=== PATIENT | male | born 1945 | race Caucasian/White ===

== ENCOUNTER 2022-04-25 12:53 | Inpatient (IN) | payer MEDICARE, OTHER ==
[2022-04-25 13:29] LABS: #Eosinphils 0.1 thou/uL (0.0-0.7); #Monocytes 0.6 thou/uL (0.11-0.59); #Neutrophils 7.6 thou/uL (1.40-6.50); %Basophils 0.1 % (0.0-1.0); %Eosinophils 0.6 % (0.0-10.0); %Lymphocytes 10.6 % (21.0-51.0); %Monocytes 6.9 % (0.0-10.0); %Neutrophils 81.8 % (42.0-75.0); Hemoglobin 12.8 g/dL (14.0-18.0); Mean Corpuscular HGB CONC 31.9 g/dL (32.0-36.0); Mean Corpuscular Hemoglobin 31.9 pg (27.0-31.0); Mean Corpuscular Volume 99.8 fl (78.0-98.0); Mean Platelet Volume 8.1 fL (7.4-10.4); Platelet Count 277 10x3/uL (130-400); RBC Distribution Width 13.9 % (11.5-14.5); Red Blood Cell (RBC) Count 4.02 mill/uL (4.70-6.10); White Blood Cell (WBC) Count 9.3 10x3/uL (4.8-10.8)
[2022-04-25 13:48] LABS: INR-International Normal Ratio 1.3; Prothrombin Time 16.4 sec (12.0-14.7)
[2022-04-25 13:51] LABS: ALT (SGPT) 140 U/L (8-55); AST (SGOT) 103 U/L (5-34); Albumin 2.4 g/dL (3.4-4.8); Alkaline Phosphatase 107 U/L (40-110); Anion Gap 17 mmol/L (10-20); BUN (Urea Nitrogen) 14 mg/dL (8.4-25.7); Bilirubin, Total 1.5 mg/dL (0.2-1.2); CK (CPK) 66 U/L (30-200); Calc. Creatinine Clearance 0 mL/min (70-130); Calcium 8.1 mg/dL (7.8-10.44); Carbon Dioxide 18 mmol/L (23-31); Chloride 114 mmol/L (98-107); Estimated GFR 91; Globulin 2.8 g/dL (2.4-3.5); Glucose 131 mg/dL (83-110); Potassium 4.2 mmol/L (3.5-5.1); Protein, Total 5.2 g/dL (5.8-8.1); Sodium 145 mmol/L (136-145)
[2022-04-25 14:04] LABS: Bilirubin Negative (Negative); Blood, Urine Negative (Negative); Clarity Clear (Clear); Glucose, Urine (Dipstick) Greater than 1000 mg/dL (Negative); Ketone, Urine 40 mg/dL (Negative); Leukocyte Negative Leu/uL (Negative); Nitrite Negative (Negative); Protein, Urine (Dipstick) Negative (Neg-Trace); Specific Gravity, Urine 1.018 (1.002-1.036); Urobilinogen Normal mg/dL (Less than 2); pH, Urine 5.5 (5.0-9.0)
[2022-04-25 14:29] LABS: SARS-CoV-2 NAA Rapid Test DETECTED (NotDetected)
[2022-04-25] MEDS ORDERED: Sodium Chloride 0.9% 1,000 ML IV SCH (14:30)
[2022-04-25] MEDS ORDERED: Ondansetron PF 4 MG/2 ML Vial IVP PRN (14:31)
[2022-04-25 15:22] LABS: Actual Bicarbonate (HCO3v) 20 mEq/L (22-28); Base Excess -4.6 mEq/L (-2.0 to +3.0); Chloride (VBG) 113 mmol/L (98-106); Hemoglobin (Hb) 12.8 g/dL (12.6-17.4); Potassium (VBG) 3.81 mmol/L (3.70-5.30); Sodium 142.9 mmol/L (133-146); pH (venous) 7.37 (7.32-7.43)
[2022-04-25] MEDS ORDERED: Dextrose 5% in Water 1,000 ML IV PRN (17:06)
[2022-04-25] MEDS ORDERED: Dextrose 50% Abboject 50 ML SYRINGE SLOW IVP PRN (17:06)
[2022-04-25] MEDS ORDERED: diphenhydrAMINE 30 GM TUBE TOP PRN (20:34)
[2022-04-26 06:32] LABS: #Lymphocytes 0.8 thou/uL (1.20-3.40); #Monocytes 0.4 thou/uL (0.11-0.59); #Neutrophils 9.5 thou/uL (1.40-6.50); %Eosinophils 0.3 % (0.0-10.0); %Monocytes 3.8 % (0.0-10.0); %Neutrophils 88.8 % (42.0-75.0); Hemoglobin 11.6 g/dL (14.0-18.0); Mean Corpuscular HGB CONC 32.4 g/dL (32.0-36.0); Mean Corpuscular Hemoglobin 32.5 pg (27.0-31.0); Mean Platelet Volume 7.9 fL (7.4-10.4); Platelet Count 290 10x3/uL (130-400); Red Blood Cell (RBC) Count 3.58 mill/uL (4.70-6.10); White Blood Cell (WBC) Count 10.7 10x3/uL (4.8-10.8)
[2022-04-26 07:05] LABS: Anion Gap 24 mmol/L (10-20); BUN (Urea Nitrogen) 21 mg/dL (8.4-25.7); Calc. Creatinine Clearance 60 mL/min (70-130); Calcium 7.8 mg/dL (7.8-10.44); Chloride 116 mmol/L (98-107); Estimated GFR 74; Glucose 146 mg/dL (83-110); Potassium 4.4 mmol/L (3.5-5.1); Sodium 145 mmol/L (136-145)
[2022-04-26 07:18] LABS: Carbon Dioxide 9 mmol/L (23-31)
[2022-04-26] MEDS: Sodium Bicarbonate 75 MEQ in Sodium Chloride 0.45% 1,000 ML IV SCH ×2 (08:53→22:44)
[2022-04-26] MEDS ORDERED: Ketamine 50 MG/ML (10ML VIAL) ONE (19:14)
[2022-04-26] MEDS ORDERED: Phenylephrine 10 MG/ML VIAL ONE (19:15)
[2022-04-26] MEDS ORDERED: Albumin 5% 250 ML ONE (20:29)
[2022-04-27] MEDS ORDERED: Lorazepam 2 MG/ML VIAL SLOW IVP SCH (02:00)
[2022-04-27] MEDS: DRY MOUTH SPRAY PO SCH (02:46)
[2022-04-27 07:15] LABS: #Lymphocytes 1.2 thou/uL (1.20-3.40); #Neutrophils 9.9 thou/uL (1.40-6.50); %Basophils 0.2 % (0.0-1.0); %Eosinophils 0.2 % (0.0-10.0); %Monocytes 8.1 % (0.0-10.0); %Neutrophils 81.4 % (42.0-75.0); Hemoglobin 11.5 g/dL (14.0-18.0); Mean Corpuscular HGB CONC 31.2 g/dL (32.0-36.0); Mean Corpuscular Hemoglobin 32.3 pg (27.0-31.0); Mean Platelet Volume 7.8 fL (7.4-10.4); Platelet Count 310 10x3/uL (130-400); RBC Distribution Width 14.7 % (11.5-14.5); Red Blood Cell (RBC) Count 3.57 mill/uL (4.70-6.10); White Blood Cell (WBC) Count 12.1 10x3/uL (4.8-10.8)
[2022-04-27 07:44] LABS: Anion Gap 29 mmol/L (10-20); BUN (Urea Nitrogen) 31 mg/dL (8.4-25.7); Calc. Creatinine Clearance 41 mL/min (70-130); Calcium 7.7 mg/dL (7.8-10.44); Chloride 117 mmol/L (98-107); Estimated GFR 46; Glucose 195 mg/dL (83-110); Potassium 4.1 mmol/L (3.5-5.1)
[2022-04-27 08:09] LABS: Carbon Dioxide 9 mmol/L (23-31); Sodium 151 mmol/L (136-145)
[2022-04-27] MEDS ORDERED: Sodium Bicarbonate 75 MEQ in Dextrose 5% in Water 1,000 ML IV SCH (09:00)
[2022-04-27] MEDS ORDERED: Sodium Bicarbonate Tab 325 MG TAB PER TUBE SCH (09:00)
[2022-04-27] MEDS: Sodium Bicarbonate 75 MEQ in Dextrose 5% in Water 1,000 ML IV SCH ×3 (09:33→18:42)
[2022-04-27 12:42] LABS: Anion Gap 27 mmol/L (10-20); BUN (Urea Nitrogen) 33 mg/dL (8.4-25.7); Calc. Creatinine Clearance 39 mL/min (70-130); Calcium 7.7 mg/dL (7.8-10.44); Carbon Dioxide 12 mmol/L (23-31); Chloride 115 mmol/L (98-107); Estimated GFR 44; Glucose 265 mg/dL (83-110); Potassium 3.9 mmol/L (3.5-5.1); Sodium 150 mmol/L (136-145)
[2022-04-27] MEDS ORDERED: Albumin 25% 25 GM/100 ML BOT IVPB SCH (15:30)
[2022-04-27] MEDS ORDERED: Dextrose 5 %-0.45 % NaCl 1,000 ML IV PRN (16:38)
[2022-04-27] MEDS ORDERED: Sodium Chloride 0.9% 1,000 ML IV PRN ×4 (16:38)
[2022-04-27] MEDS ORDERED: Electrolyte Replacement Protocol 1 EACH IVPB ONE (16:38)
[2022-04-27] MEDS ORDERED: NS 0.9% w/ 20 MEQ KCL 1,000 ML IV PRN ×2 (16:38)
[2022-04-27 16:43] LABS: Base Excess (BEa) -9.3 mEq/L (-2.0 to +3.0); Calcium, Ionized (arterial) 1.14 mmol/L (1.12-1.30); Carboxyhemoglobin (COHb) 0.3 gm% (0.0-3.0); Hemoglobin (Hb) 11.4 g/dL (14.0-18.0); pH, Arterial 7.39 (7.35-7.45)
[2022-04-27 16:49] LABS: CO2 Tension 23.8 mmHg (35.0-45.0); Puncture Site RRA
[2022-04-27] MEDS ORDERED: Electrolyte Replacement Protocol FS PRN (17:15)
[2022-04-27 17:24] LABS: Bacteria/HPF 1+ HPF (None Seen); Bilirubin Negative (Negative); Blood, Urine Negative (Negative); CAUTI Indications for Culture Alt mental st,lethar; Clarity Clear (Clear); Glucose, Urine (Dipstick) Greater than 1000 mg/dL (Negative); Ketone, Urine 60 mg/dL (Negative); Leukocyte 25 Leu/uL (Negative); Nitrite Negative (Negative); Protein, Urine (Dipstick) Negative (Neg-Trace); RBC/HPF 0-3 HPF (0-3); Specific Gravity, Urine 1.022 (1.002-1.036); Squamous Epithelial None Seen HPF (0-3); Urobilinogen Normal mg/dL (Less than 2); WBC/HPF 0-3 HPF (0-3)
[2022-04-27 17:26] LABS: Urine Culture Reflex No No
[2022-04-27 17:30] LABS: Anion Gap 25 mmol/L (10-20); BUN (Urea Nitrogen) 32 mg/dL (8.4-25.7); Calc. Creatinine Clearance 38 mL/min (70-130); Calcium 7.9 mg/dL (7.8-10.44); Carbon Dioxide 13 mmol/L (23-31); Chloride 114 mmol/L (98-107); Estimated GFR 43; Glucose 286 mg/dL (83-110); Potassium 3.7 mmol/L (3.5-5.1); Sodium 148 mmol/L (136-145)
[2022-04-27 17:42] LABS: Creatinine, Urine 28.57 mg/dL (63-166); Protein, Urine Random Quant Less than 10 mg/dL (1-14); Sodium, Urine Less than 20 mmol/L (Not Available)
[2022-04-27] MEDS: D5 1/2 NS w/20 mEq KCL 1,000 ML IV PRN (20:59)
[2022-04-27] MEDS: HUMULIN R 100 UNITS in Sodium Chloride 0.9% 100 ML IVPB SCH (21:00)
[2022-04-27 22:28] LABS: Anion Gap 20 mmol/L (10-20); BUN (Urea Nitrogen) 29 mg/dL (8.4-25.7); Calc. Creatinine Clearance 38 mL/min (70-130); Calcium 7.7 mg/dL (7.8-10.44); Carbon Dioxide 19 mmol/L (23-31); Chloride 114 mmol/L (98-107); Estimated GFR 43; Glucose 321 mg/dL (83-110); Potassium 3.1 mmol/L (3.5-5.1); Sodium 150 mmol/L (136-145)
[2022-04-28 01:37] LABS: Anion Gap 16 mmol/L (10-20); BUN (Urea Nitrogen) 27 mg/dL (8.4-25.7); Calc. Creatinine Clearance 37 mL/min (70-130); Calcium 7.9 mg/dL (7.8-10.44); Carbon Dioxide 22 mmol/L (23-31); Chloride 114 mmol/L (98-107); Estimated GFR 41; Glucose 303 mg/dL (83-110); Potassium 3.2 mmol/L (3.5-5.1); Sodium 149 mmol/L (136-145)
[2022-04-28] MEDS: Sodium Bicarbonate 75 MEQ in Dextrose 5% in Water 1,000 ML IV SCH ×2 (02:20→07:53)
[2022-04-28] MEDS: DRY MOUTH SPRAY PO SCH (02:21)
[2022-04-28] MEDS: Potassium Chloride 20 MEQ in Premix Bag 1 BAG IVPB SCH ×4 (02:26→12:48)
[2022-04-28 04:19] LABS: #Eosinphils 0.1 thou/uL (0.0-0.7); #Monocytes 1.1 thou/uL (0.11-0.59); #Neutrophils 11.5 thou/uL (1.40-6.50); %Basophils 0.2 % (0.0-1.0); %Eosinophils 0.4 % (0.0-10.0); %Lymphocytes 7.4 % (21.0-51.0); %Monocytes 7.8 % (0.0-10.0); %Neutrophils 84.2 % (42.0-75.0); Hemoglobin 11.9 g/dL (14.0-18.0); Mean Corpuscular HGB CONC 32.3 g/dL (32.0-36.0); Mean Corpuscular Hemoglobin 31.9 pg (27.0-31.0); Mean Corpuscular Volume 98.9 fl (78.0-98.0); Mean Platelet Volume 7.7 fL (7.4-10.4); Platelet Count 282 10x3/uL (130-400); RBC Distribution Width 14.5 % (11.5-14.5); Red Blood Cell (RBC) Count 3.73 mill/uL (4.70-6.10); White Blood Cell (WBC) Count 13.7 10x3/uL (4.8-10.8)
[2022-04-28 04:55] LABS: Anion Gap 13 mmol/L (10-20); BUN (Urea Nitrogen) 24 mg/dL (8.4-25.7); Calc. Creatinine Clearance 40 mL/min (70-130); Calcium 7.7 mg/dL (7.8-10.44); Carbon Dioxide 24 mmol/L (23-31); Chloride 114 mmol/L (98-107); Estimated GFR 46; Glucose 278 mg/dL (83-110); Sodium 148 mmol/L (136-145)
[2022-04-28] MEDS ORDERED: Potassium Chloride 20 MEQ in Premix Bag 1 BAG IVPB SCH (06:00)
[2022-04-28 09:38] LABS: Phosphorus 1.5 mg/dL (2.3-4.7)
[2022-04-28] MEDS: D5 1/2 NS w/20 mEq KCL 1,000 ML IV PRN (09:39)
[2022-04-28] MEDS: HUMULIN R 100 UNITS in Sodium Chloride 0.9% 100 ML IVPB SCH (09:39)
[2022-04-28] MEDS ORDERED: Potassium Phosphate 30 MMOL in Sodium Chloride 0.9% 250 ML 250 ML IVPB SCH (11:15)
[2022-04-28] MEDS ORDERED: Electrolyte Replacement Protocol 1 EACH FS SCH (11:15)
[2022-04-28] MEDS: D5 1/2 NS w/20 mEq KCL 1,000 ML IV SCH ×2 (12:48→17:25)
[2022-04-28 12:49] LABS: Magnesium 1.9 mg/dL (1.6-2.6)
[2022-04-28] MEDS ORDERED: Calcium Carbonate 500 MG ChewTAB PO PRN (15:51)
[2022-04-28] MEDS ORDERED: Amiodarone 200 MG TAB PER TUBE SCH (15:52)
[2022-04-28] MEDS ORDERED: Amlodipine 5 MG TAB PO SCH (15:52)
[2022-04-28 15:54] LABS: Anion Gap 14 mmol/L (10-20); BUN (Urea Nitrogen) 16 mg/dL (8.4-25.7); Calc. Creatinine Clearance 54 mL/min (70-130); Calcium 7.7 mg/dL (7.8-10.44); Carbon Dioxide 21 mmol/L (23-31); Chloride 117 mmol/L (98-107); Estimated GFR 66; Glucose 238 mg/dL (83-110); Potassium 4.4 mmol/L (3.5-5.1); Sodium 148 mmol/L (136-145)
[2022-04-28] MEDS ORDERED: D5 1/2 NS w/20 mEq KCL 1,000 ML IV SCH (17:18)
[2022-04-28] MEDS: 1/2 NS w/KCL 20 mEq 1,000 ML IV SCH (17:46)
[2022-04-28] MEDS: Carvedilol 6.25 MG TAB PO SCH (21:34)
[2022-04-28] MEDS: Insulin Glargine 30 UNITS/0.3 ML VIAL SC SCH (21:34)
[2022-04-28] MEDS: Atorvastatin Calcium 20 MG TAB PO SCH (21:34)
[2022-04-28] MEDS: Heparin 5,000 UNITS/ML VIAL SC SCH (21:35)
[2022-04-28] MEDS: Timolol 0.5% Ophth Soln 5 ml Bottle R EYE SCH (22:26)
[2022-04-28] MEDS: Latanoprost 0.005% Ophth Soln 2.5 ml Bottle EA EYE SCH (22:26)
[2022-04-28 23:20] LABS: Anion Gap 13 mmol/L (10-20); BUN (Urea Nitrogen) 14 mg/dL (8.4-25.7); Calc. Creatinine Clearance 62 mL/min (70-130); Calcium 7.4 mg/dL (7.8-10.44); Carbon Dioxide 22 mmol/L (23-31); Chloride 118 mmol/L (98-107); Estimated GFR 77; Glucose 271 mg/dL (83-110); Potassium 6.1 mmol/L (3.5-5.1); Sodium 147 mmol/L (136-145)
[2022-04-29] MEDS: HumaLOG 300 UNITS/3 ML VIAL SC PRN ×2 (01:17→06:12)
[2022-04-29 01:42] LABS: Anion Gap 11 mmol/L (10-20); BUN (Urea Nitrogen) 16 mg/dL (8.4-25.7); Calc. Creatinine Clearance 63 mL/min (70-130); Calcium 7.4 mg/dL (7.8-10.44); Carbon Dioxide 24 mmol/L (23-31); Chloride 117 mmol/L (98-107); Estimated GFR 79; Glucose 268 mg/dL (83-110); Potassium 4.4 mmol/L (3.5-5.1); Sodium 148 mmol/L (136-145)
[2022-04-29 06:14] LABS: #Lymphocytes 0.8 thou/uL (1.20-3.40); #Monocytes 0.7 thou/uL (0.11-0.59); #Neutrophils 9.1 thou/uL (1.40-6.50); %Basophils 0.1 % (0.0-1.0); %Eosinophils 0.4 % (0.0-10.0); %Lymphocytes 7.8 % (21.0-51.0); %Monocytes 6.6 % (0.0-10.0); %Neutrophils 85.1 % (42.0-75.0); Hemoglobin 13.2 g/dL (14.0-18.0); Mean Corpuscular HGB CONC 32.1 g/dL (32.0-36.0); Mean Corpuscular Hemoglobin 32.1 pg (27.0-31.0); Mean Corpuscular Volume 99.9 fl (78.0-98.0); Mean Platelet Volume 8.1 fL (7.4-10.4); Platelet Count 251 10x3/uL (130-400); RBC Distribution Width 14.8 % (11.5-14.5); White Blood Cell (WBC) Count 10.7 10x3/uL (4.8-10.8)
[2022-04-29 06:35] LABS: Phosphorus 1.8 mg/dL (2.3-4.7)
[2022-04-29 06:37] LABS: Anion Gap 9 mmol/L (10-20); BUN (Urea Nitrogen) 16 mg/dL (8.4-25.7); Calc. Creatinine Clearance 64 mL/min (70-130); Calcium 7.9 mg/dL (7.8-10.44); Carbon Dioxide 27 mmol/L (23-31); Chloride 117 mmol/L (98-107); Estimated GFR 80; Glucose 246 mg/dL (83-110); Magnesium 1.8 mg/dL (1.6-2.6); Potassium 3.8 mmol/L (3.5-5.1); Sodium 149 mmol/L (136-145)
[2022-04-29] MEDS ORDERED: Potassium Phosphate 15 MMOL in Sodium Chloride 0.9% 100 ML IVPB SCH (08:00)
[2022-04-29] MEDS ORDERED: Magnesium 2 GM/50 ML(in water) 2 GM in Premix Bag 1 BAG IVPB SCH (08:00)
[2022-04-29] MEDS: 1/2 NS w/KCL 20 mEq 1,000 ML IV SCH (09:06)
[2022-04-29] MEDS: Tamsulosin HCl 0.4 MG CAP PO SCH (09:10)
[2022-04-29] MEDS: Carvedilol 6.25 MG TAB PO SCH ×2 (09:10→20:37)
[2022-04-29] MEDS: Heparin 5,000 UNITS/ML VIAL SC SCH ×2 (09:10→20:37)
[2022-04-29] MEDS: Amlodipine 5 MG TAB PO SCH (09:11)
[2022-04-29] MEDS: Amiodarone 200 MG TAB PER TUBE SCH (09:11)
[2022-04-29] MEDS: Insulin Glargine 30 UNITS/0.3 ML VIAL SC SCH ×2 (09:11→20:37)
[2022-04-29] MEDS: Polyethylene Glycol 3350 17 GM Packet PO SCH (09:12)
[2022-04-29] MEDS: Timolol 0.5% Ophth Soln 5 ml Bottle R EYE SCH ×2 (09:12→20:37)
[2022-04-29] MEDS: Ferrous Sulfate 325 MG TAB PO SCH (09:12)
[2022-04-29] MEDS: Bisacodyl 10 MG SUPP PR SCH (09:12)
[2022-04-29] MEDS: Fish Oil 1,000 MG CAP PO SCH (09:12)
[2022-04-29] MEDS: Atorvastatin Calcium 20 MG TAB PO SCH (20:37)
[2022-04-29] MEDS: Latanoprost 0.005% Ophth Soln 2.5 ml Bottle EA EYE SCH (20:38)
[2022-04-30 04:09] LABS: #Monocytes 0.6 thou/uL (0.11-0.59); #Neutrophils 8.5 thou/uL (1.40-6.50); %Basophils 0.1 % (0.0-1.0); %Eosinophils 0.3 % (0.0-10.0); %Lymphocytes 9.9 % (21.0-51.0); %Monocytes 5.8 % (0.0-10.0); Hemoglobin 13.1 g/dL (14.0-18.0); Mean Corpuscular HGB CONC 31.5 g/dL (32.0-36.0); Mean Corpuscular Hemoglobin 31.6 pg (27.0-31.0); Mean Platelet Volume 8.2 fL (7.4-10.4); Platelet Count 201 10x3/uL (130-400); RBC Distribution Width 14.8 % (11.5-14.5); Red Blood Cell (RBC) Count 4.15 mill/uL (4.70-6.10); White Blood Cell (WBC) Count 10.1 10x3/uL (4.8-10.8)
[2022-04-30 04:28] LABS: Phosphorus 2.1 mg/dL (2.3-4.7)
[2022-04-30 04:32] LABS: Anion Gap 11 mmol/L (10-20); BUN (Urea Nitrogen) 14 mg/dL (8.4-25.7); Calc. Creatinine Clearance 80 mL/min (70-130); Carbon Dioxide 28 mmol/L (23-31); Chloride 115 mmol/L (98-107); Estimated GFR 92; Glucose 176 mg/dL (83-110); Magnesium 2.1 mg/dL (1.6-2.6); Potassium 3.7 mmol/L (3.5-5.1); Sodium 150 mmol/L (136-145)
[2022-04-30] MEDS: Ferrous Sulfate 325 MG TAB PO SCH (09:27)
[2022-04-30] MEDS: Fish Oil 1,000 MG CAP PO SCH (09:27)
[2022-04-30] MEDS: Bisacodyl 10 MG SUPP PR SCH (09:27)
[2022-04-30] MEDS: Amiodarone 200 MG TAB PER TUBE SCH (09:28)
[2022-04-30] MEDS: Carvedilol 6.25 MG TAB PO SCH ×2 (09:28→21:54)
[2022-04-30] MEDS: Amlodipine 5 MG TAB PO SCH (09:28)
[2022-04-30] MEDS: Polyethylene Glycol 3350 17 GM Packet PO SCH (09:28)
[2022-04-30] MEDS: Tamsulosin HCl 0.4 MG CAP PO SCH (09:28)
[2022-04-30] MEDS: Insulin Glargine 30 UNITS/0.3 ML VIAL SC SCH ×2 (09:28→21:55)
[2022-04-30] MEDS: Heparin 5,000 UNITS/ML VIAL SC SCH ×2 (09:28→21:53)
[2022-04-30] MEDS: Timolol 0.5% Ophth Soln 5 ml Bottle R EYE SCH ×2 (09:29→22:00)
[2022-04-30] MEDS: Atorvastatin Calcium 20 MG TAB PO SCH (21:53)
[2022-04-30] MEDS: Latanoprost 0.005% Ophth Soln 2.5 ml Bottle EA EYE SCH (22:01)
[2022-05-01 05:00] LABS: Albumin 2.2 g/dL (3.4-4.8); Phosphorus 2.5 mg/dL (2.3-4.7)
[2022-05-01 05:02] LABS: Anion Gap 11 mmol/L (10-20); BUN (Urea Nitrogen) 15 mg/dL (8.4-25.7); Calc. Creatinine Clearance 92 mL/min (70-130); Calcium 8.1 mg/dL (7.8-10.44); Carbon Dioxide 25 mmol/L (23-31); Chloride 110 mmol/L (98-107); Estimated GFR 95; Glucose 96 mg/dL (83-110); Magnesium 1.9 mg/dL (1.6-2.6); Potassium 3.4 mmol/L (3.5-5.1); Sodium 143 mmol/L (136-145)
[2022-05-01] MEDS ORDERED: Potassium Bicarbonate/Cit Ac 20 MEQ TAB PER TUBE SCH (07:30)
[2022-05-01] MEDS ORDERED: Magnesium 2 GM/50 ML(in water) 2 GM in Premix Bag 1 BAG IVPB SCH (08:00)
[2022-05-01] MEDS: Amlodipine 5 MG TAB PO SCH (09:36)
[2022-05-01] MEDS: Amiodarone 200 MG TAB PER TUBE SCH (09:36)
[2022-05-01] MEDS: Bisacodyl 10 MG SUPP PR SCH (09:36)
[2022-05-01] MEDS: Ferrous Sulfate 325 MG TAB PO SCH (09:36)
[2022-05-01] MEDS: Fish Oil 1,000 MG CAP PO SCH (09:36)
[2022-05-01] MEDS: Carvedilol 6.25 MG TAB PO SCH ×2 (09:36→21:03)
[2022-05-01] MEDS: Tamsulosin HCl 0.4 MG CAP PO SCH (09:36)
[2022-05-01] MEDS: Insulin Glargine 30 UNITS/0.3 ML VIAL SC SCH ×2 (09:37→21:22)
[2022-05-01] MEDS: Timolol 0.5% Ophth Soln 5 ml Bottle R EYE SCH ×2 (09:37→21:22)
[2022-05-01] MEDS: Polyethylene Glycol 3350 17 GM Packet PO SCH (09:37)
[2022-05-01] MEDS: Heparin 5,000 UNITS/ML VIAL SC SCH ×2 (09:37→21:03)
[2022-05-01] MEDS: Albumin 25% 25 GM/100 ML BOT IVPB SCH (17:48)
[2022-05-01] MEDS: Atorvastatin Calcium 20 MG TAB PO SCH (21:03)
[2022-05-01] MEDS: Latanoprost 0.005% Ophth Soln 2.5 ml Bottle EA EYE SCH (21:22)
[2022-05-02] MEDS: Albumin 25% 25 GM/100 ML BOT IVPB SCH ×2 (00:13→05:23)
[2022-05-02 03:41] LABS: Anion Gap 11 mmol/L (10-20); BUN (Urea Nitrogen) 14 mg/dL (8.4-25.7); Calc. Creatinine Clearance 87 mL/min (70-130); Calcium 8.1 mg/dL (7.8-10.44); Carbon Dioxide 24 mmol/L (23-31); Chloride 107 mmol/L (98-107); Estimated GFR 94; Glucose 130 mg/dL (83-110); Magnesium 2.1 mg/dL (1.6-2.6); Potassium 3.7 mmol/L (3.5-5.1); Sodium 138 mmol/L (136-145)
[2022-05-02] MEDS: Polyethylene Glycol 3350 17 GM Packet PO SCH (09:28)
[2022-05-02] MEDS: Fish Oil 1,000 MG CAP PO SCH (09:28)
[2022-05-02] MEDS: Carvedilol 6.25 MG TAB PO SCH ×2 (09:28→21:38)
[2022-05-02] MEDS: Heparin 5,000 UNITS/ML VIAL SC SCH ×2 (09:28→21:38)
[2022-05-02] MEDS: Amiodarone 200 MG TAB PER TUBE SCH (09:28)
[2022-05-02] MEDS: Tamsulosin HCl 0.4 MG CAP PO SCH (09:28)
[2022-05-02] MEDS: Amlodipine 5 MG TAB PO SCH (09:28)
[2022-05-02] MEDS: Ferrous Sulfate 325 MG TAB PO SCH (09:28)
[2022-05-02] MEDS: Bisacodyl 10 MG SUPP PR SCH (09:28)
[2022-05-02] MEDS: Timolol 0.5% Ophth Soln 5 ml Bottle R EYE SCH ×2 (09:29→21:39)
[2022-05-02] MEDS: Insulin Glargine 30 UNITS/0.3 ML VIAL SC SCH ×2 (09:29→20:27)
[2022-05-02] MEDS ORDERED: Torsemide 10 MG TAB PER TUBE SCH (13:30)
[2022-05-02] MEDS: Atorvastatin Calcium 20 MG TAB PO SCH (21:38)
[2022-05-02] MEDS: Latanoprost 0.005% Ophth Soln 2.5 ml Bottle EA EYE SCH (21:40)
[2022-05-03 06:27] LABS: Anion Gap 13 mmol/L (10-20); BUN (Urea Nitrogen) 16 mg/dL (8.4-25.7); Calc. Creatinine Clearance 89 mL/min (70-130); Calcium 8.3 mg/dL (7.8-10.44); Carbon Dioxide 28 mmol/L (23-31); Chloride 103 mmol/L (98-107); Estimated GFR 94; Glucose 225 mg/dL (83-110); Potassium 3.5 mmol/L (3.5-5.1); Sodium 140 mmol/L (136-145)
[2022-05-03 06:38] LABS: #Eosinphils 0.2 thou/uL (0.0-0.7); #Lymphocytes 0.9 thou/uL (1.20-3.40); #Monocytes 0.4 thou/uL (0.11-0.59); #Neutrophils 6.3 thou/uL (1.40-6.50); %Eosinophils 1.9 % (0.0-10.0); %Lymphocytes 11.9 % (21.0-51.0); %Monocytes 5.7 % (0.0-10.0); %Neutrophils 80.5 % (42.0-75.0); Hemoglobin 12.9 g/dL (14.0-18.0); Mean Corpuscular Hemoglobin 33.1 pg (27.0-31.0); Mean Corpuscular Volume 97.2 fl (78.0-98.0); Mean Platelet Volume 9.5 fL (7.4-10.4); Platelet Count 107 10x3/uL (130-400); Platelet Morphology Comment Appears Decreased; RBC Distribution Width 14.4 % (11.5-14.5); White Blood Cell (WBC) Count 7.9 10x3/uL (4.8-10.8)
[2022-05-03] MEDS ORDERED: Potassium Bicarbonate/Cit Ac 20 MEQ TAB PER TUBE SCH (08:00)
[2022-05-03] MEDS: Heparin 5,000 UNITS/ML VIAL SC SCH ×2 (08:35→21:44)
[2022-05-03] MEDS: Insulin Glargine 30 UNITS/0.3 ML VIAL SC SCH ×2 (08:35→21:43)
[2022-05-03] MEDS: Fish Oil 1,000 MG CAP PO SCH (08:36)
[2022-05-03] MEDS: Amiodarone 200 MG TAB PER TUBE SCH (08:36)
[2022-05-03] MEDS: Carvedilol 6.25 MG TAB PO SCH ×2 (08:36→21:43)
[2022-05-03] MEDS: Amlodipine 5 MG TAB PO SCH (08:36)
[2022-05-03] MEDS: Bisacodyl 10 MG SUPP PR SCH (08:36)
[2022-05-03] MEDS: Polyethylene Glycol 3350 17 GM Packet PO SCH (08:36)
[2022-05-03] MEDS: Tamsulosin HCl 0.4 MG CAP PO SCH (08:36)
[2022-05-03] MEDS: Ferrous Sulfate 325 MG TAB PO SCH (08:37)
[2022-05-03] MEDS: Timolol 0.5% Ophth Soln 5 ml Bottle R EYE SCH ×2 (08:39→21:42)
[2022-05-03] MEDS: Atorvastatin Calcium 20 MG TAB PO SCH (21:43)
[2022-05-03] MEDS: Latanoprost 0.005% Ophth Soln 2.5 ml Bottle EA EYE SCH (21:43)
[2022-05-04] MEDS: Amlodipine 5 MG TAB PO SCH (05:17)
[2022-05-04] MEDS: HumaLOG 300 UNITS/3 ML VIAL SC PRN ×3 (05:30→17:31)
[2022-05-04 06:46] LABS: Anion Gap 12 mmol/L (10-20); BUN (Urea Nitrogen) 16 mg/dL (8.4-25.7); Calc. Creatinine Clearance 87 mL/min (70-130); Calcium 8.6 mg/dL (7.8-10.44); Carbon Dioxide 26 mmol/L (23-31); Chloride 103 mmol/L (98-107); Estimated GFR 93; Glucose 229 mg/dL (83-110); Potassium 3.5 mmol/L (3.5-5.1); Sodium 137 mmol/L (136-145)
[2022-05-04] MEDS ORDERED: Potassium Bicarbonate/Cit Ac 20 MEQ TAB PER TUBE SCH (08:00)
[2022-05-04] MEDS: Ferrous Sulfate 325 MG TAB PO SCH (09:52)
[2022-05-04] MEDS: Polyethylene Glycol 3350 17 GM Packet PO SCH (09:52)
[2022-05-04] MEDS: Bisacodyl 10 MG SUPP PR SCH (09:52)
[2022-05-04] MEDS: Fish Oil 1,000 MG CAP PO SCH (09:53)
[2022-05-04] MEDS: Carvedilol 6.25 MG TAB PO SCH ×2 (09:53→21:09)
[2022-05-04] MEDS: Heparin 5,000 UNITS/ML VIAL SC SCH ×2 (09:53→20:36)
[2022-05-04] MEDS: Amiodarone 200 MG TAB PER TUBE SCH (09:53)
[2022-05-04] MEDS: Tamsulosin HCl 0.4 MG CAP PO SCH (09:53)
[2022-05-04] MEDS: Timolol 0.5% Ophth Soln 5 ml Bottle R EYE SCH ×2 (09:54→21:11)
[2022-05-04] MEDS: Insulin Glargine 30 UNITS/0.3 ML VIAL SC SCH ×2 (09:54→21:10)
[2022-05-04] MEDS ORDERED: Amlodipine 10 MG TAB PO SCH (14:15)
[2022-05-04] MEDS: Dextrose 5%-Lactated Ringers 1,000 ML IV SCH (19:25)
[2022-05-04] MEDS: Atorvastatin Calcium 20 MG TAB PO SCH (21:09)
[2022-05-04] MEDS: Latanoprost 0.005% Ophth Soln 2.5 ml Bottle EA EYE SCH (21:10)
[2022-05-05 07:55] LABS: Anion Gap 11 mmol/L (10-20); BUN (Urea Nitrogen) 13 mg/dL (8.4-25.7); Calc. Creatinine Clearance 78 mL/min (70-130); Calcium 8.4 mg/dL (7.8-10.44); Carbon Dioxide 27 mmol/L (23-31); Chloride 106 mmol/L (98-107); Estimated GFR 92; Glucose 208 mg/dL (83-110); Potassium 3.4 mmol/L (3.5-5.1); Sodium 141 mmol/L (136-145)
[2022-05-05] MEDS: Polyethylene Glycol 3350 17 GM Packet PO SCH (08:00)
[2022-05-05] MEDS: Fish Oil 1,000 MG CAP PO SCH (08:00)
[2022-05-05] MEDS: Amlodipine 10 MG TAB PO SCH (08:00)
[2022-05-05] MEDS: Amiodarone 200 MG TAB PER TUBE SCH (08:00)
[2022-05-05] MEDS: Ferrous Sulfate 325 MG TAB PO SCH (08:00)
[2022-05-05] MEDS: Carvedilol 6.25 MG TAB PO SCH ×2 (08:00→19:13)
[2022-05-05 08:01] LABS: #Eosinphils 0.1 thou/uL (0.0-0.7); #Lymphocytes 1.2 thou/uL (1.20-3.40); #Monocytes 0.9 thou/uL (0.11-0.59); #Neutrophils 6.9 thou/uL (1.40-6.50); %Basophils 0.5 % (0.0-1.0); %Eosinophils 0.8 % (0.0-10.0); %Lymphocytes 13.1 % (21.0-51.0); %Monocytes 9.6 % (0.0-10.0); Mean Corpuscular HGB CONC 32.6 g/dL (32.0-36.0); Mean Corpuscular Volume 98.3 fl (78.0-98.0); Mean Platelet Volume 9.3 fL (7.4-10.4); Platelet Count 109 10x3/uL (130-400); RBC Distribution Width 14.1 % (11.5-14.5); Red Blood Cell (RBC) Count 3.76 mill/uL (4.70-6.10); White Blood Cell (WBC) Count 9.1 10x3/uL (4.8-10.8)
[2022-05-05] MEDS: Tamsulosin HCl 0.4 MG CAP PO SCH (08:01)
[2022-05-05] MEDS ORDERED: Potassium Chloride 20 MEQ TAB PO SCH (08:15)
[2022-05-05] MEDS: Heparin 5,000 UNITS/ML VIAL SC SCH ×2 (08:56→20:45)
[2022-05-05] MEDS: Bisacodyl 10 MG SUPP PR SCH (08:56)
[2022-05-05] MEDS ORDERED: Potassium Chloride 20 MEQ in Premix Bag 1 BAG IVPB SCH (10:30)
[2022-05-05] MEDS: Insulin Glargine 30 UNITS/0.3 ML VIAL SC SCH ×2 (10:31→20:39)
[2022-05-05] MEDS: Dextrose 5%-Lactated Ringers 1,000 ML IV SCH ×2 (11:41→22:11)
[2022-05-05] MEDS: Timolol 0.5% Ophth Soln 5 ml Bottle R EYE SCH ×2 (11:41→20:46)
[2022-05-05] MEDS: Atorvastatin Calcium 20 MG TAB PO SCH (19:13)
[2022-05-05] MEDS: Latanoprost 0.005% Ophth Soln 2.5 ml Bottle EA EYE SCH (20:46)
[2022-05-06 06:52] LABS: #Lymphocytes 0.9 thou/uL (1.20-3.40); #Monocytes 1.1 thou/uL (0.11-0.59); #Neutrophils 13.1 thou/uL (1.40-6.50); %Basophils 0.1 % (0.0-1.0); %Eosinophils 0.1 % (0.0-10.0); %Lymphocytes 6.1 % (21.0-51.0); %Monocytes 7.2 % (0.0-10.0); %Neutrophils 86.4 % (42.0-75.0); Hemoglobin 12.1 g/dL (14.0-18.0); Mean Corpuscular HGB CONC 32.6 g/dL (32.0-36.0); Mean Corpuscular Hemoglobin 32.2 pg (27.0-31.0); Mean Corpuscular Volume 98.7 fl (78.0-98.0); Mean Platelet Volume 9.8 fL (7.4-10.4); Platelet Count 127 10x3/uL (130-400); RBC Distribution Width 14.1 % (11.5-14.5); Red Blood Cell (RBC) Count 3.75 mill/uL (4.70-6.10); White Blood Cell (WBC) Count 15.2 10x3/uL (4.8-10.8)
[2022-05-06 07:15] LABS: Anion Gap 15 mmol/L (10-20); BUN (Urea Nitrogen) 14 mg/dL (8.4-25.7); Calc. Creatinine Clearance 79 mL/min (70-130); Calcium 8.3 mg/dL (7.8-10.44); Carbon Dioxide 20 mmol/L (23-31); Chloride 108 mmol/L (98-107); Estimated GFR 92; Glucose 252 mg/dL (83-110); Potassium 3.7 mmol/L (3.5-5.1); Sodium 139 mmol/L (136-145)
[2022-05-06] MEDS: Amiodarone 200 MG TAB PER TUBE SCH (07:38)
[2022-05-06] MEDS: Amlodipine 10 MG TAB PO SCH (07:38)
[2022-05-06] MEDS: Carvedilol 6.25 MG TAB PO SCH ×2 (07:38→20:14)
[2022-05-06] MEDS: Heparin 5,000 UNITS/ML VIAL SC SCH ×2 (07:39→20:14)
[2022-05-06] MEDS: Fish Oil 1,000 MG CAP PO SCH (07:39)
[2022-05-06] MEDS: Ferrous Sulfate 325 MG TAB PO SCH (07:39)
[2022-05-06] MEDS: Polyethylene Glycol 3350 17 GM Packet PO SCH (07:40)
[2022-05-06] MEDS: Tamsulosin HCl 0.4 MG CAP PO SCH (07:40)
[2022-05-06] MEDS: Insulin Glargine 30 UNITS/0.3 ML VIAL SC SCH ×2 (07:40→20:25)
[2022-05-06] MEDS: Dextrose 5%-Lactated Ringers 1,000 ML IV SCH ×2 (09:41→20:26)
[2022-05-06] MEDS: Timolol 0.5% Ophth Soln 5 ml Bottle R EYE SCH ×2 (09:42→20:25)
[2022-05-06] MEDS: Bisacodyl 10 MG SUPP PR SCH (09:42)
[2022-05-06 11:49] VITALS: BMI 23.8
[2022-05-06] MEDS: HumaLOG 300 UNITS/3 ML VIAL SC PRN ×2 (13:21→18:34)
[2022-05-06] MEDS: Atorvastatin Calcium 20 MG TAB PO SCH (20:13)
[2022-05-06] MEDS: Latanoprost 0.005% Ophth Soln 2.5 ml Bottle EA EYE SCH (20:25)
[2022-05-07] MEDS: HumaLOG 300 UNITS/3 ML VIAL SC PRN (06:07)
[2022-05-07 07:24] LABS: #Eosinphils 0.1 thou/uL (0.0-0.7); #Monocytes 0.7 thou/uL (0.11-0.59); #Neutrophils 9.3 thou/uL (1.40-6.50); %Basophils 0.1 % (0.0-1.0); %Eosinophils 0.9 % (0.0-10.0); %Monocytes 5.9 % (0.0-10.0); %Neutrophils 84.2 % (42.0-75.0); Hemoglobin 12.5 g/dL (14.0-18.0); Mean Corpuscular Hemoglobin 31.6 pg (27.0-31.0); Mean Corpuscular Volume 98.8 fl (78.0-98.0); Mean Platelet Volume 8.8 fL (7.4-10.4); Platelet Count 148 10x3/uL (130-400); RBC Distribution Width 13.9 % (11.5-14.5); Red Blood Cell (RBC) Count 3.96 mill/uL (4.70-6.10)
[2022-05-07 07:40] LABS: Anion Gap 11 mmol/L (10-20); BUN (Urea Nitrogen) 12 mg/dL (8.4-25.7); Calc. Creatinine Clearance 92 mL/min (70-130); Calcium 8.2 mg/dL (7.8-10.44); Carbon Dioxide 25 mmol/L (23-31); Chloride 113 mmol/L (98-107); Estimated GFR 97; Glucose 226 mg/dL (83-110); Potassium 2.8 mmol/L (3.5-5.1); Sodium 146 mmol/L (136-145)
[2022-05-07] MEDS: Heparin 5,000 UNITS/ML VIAL SC SCH ×2 (07:59→20:08)
[2022-05-07] MEDS: Bisacodyl 10 MG SUPP PR SCH ×2 (08:00→08:45)
[2022-05-07] MEDS: Insulin Glargine 30 UNITS/0.3 ML VIAL SC SCH ×2 (08:45→20:06)
[2022-05-07] MEDS: Potassium Chloride 20 MEQ in Premix Bag 1 BAG IVPB SCH ×5 (08:45→23:02)
[2022-05-07] MEDS ORDERED: Potassium Chloride 20 MEQ TAB PO SCH (09:00)
[2022-05-07] MEDS: Polyethylene Glycol 3350 17 GM Packet PO SCH (09:01)
[2022-05-07] MEDS: Fish Oil 1,000 MG CAP PO SCH (09:01)
[2022-05-07] MEDS: Tamsulosin HCl 0.4 MG CAP PO SCH (09:01)
[2022-05-07] MEDS: Amlodipine 10 MG TAB PO SCH (09:01)
[2022-05-07] MEDS: Carvedilol 6.25 MG TAB PO SCH ×2 (09:01→20:08)
[2022-05-07] MEDS: Amiodarone 200 MG TAB PER TUBE SCH (09:01)
[2022-05-07] MEDS: Ferrous Sulfate 325 MG TAB PO SCH (09:01)
[2022-05-07] MEDS: Timolol 0.5% Ophth Soln 5 ml Bottle R EYE SCH ×2 (09:02→20:09)
[2022-05-07] MEDS: Dextrose 5%-Lactated Ringers 1,000 ML IV SCH (15:20)
[2022-05-07] MEDS ORDERED: Fentanyl 250 MCG/5 ML VIAL ONE (15:23)
[2022-05-07] MEDS ORDERED: SUGAMMADEX SODIUM 200 MG/2 ML VIAL ONE (15:24)
[2022-05-07] MEDS ORDERED: Bupivacaine/Epinephrine 0.25% 30 ML VIAL ONE (15:33)
[2022-05-07] MEDS ORDERED: Sodium Chloride 0.9% 100 ML ONE (15:54)
[2022-05-07] MEDS ORDERED: CEFAZOLIN 2 GM VIAL ONE (15:54)
[2022-05-07] MEDS ORDERED: PHENYLEPHRINE-NS 100 MCG/ML 10 ML SYRINGE ONE (16:22)
[2022-05-07] MEDS ORDERED: Lidocaine 1% PF 5 ML VIAL ONE (16:22)
[2022-05-07] MEDS ORDERED: Rocuronium Bromide 10 MG/ML (10ML VIAL) ONE (16:22)
[2022-05-07] MEDS ORDERED: Dexamethasone 20 MG/5 ML VIAL ONE (16:22)
[2022-05-07] MEDS ORDERED: Ondansetron PF 4 MG/2 ML Vial ONE (16:22)
[2022-05-07] MEDS ORDERED: ePHEDrine 50 MG/ML VIAL ONE (16:22)
[2022-05-07] MEDS ORDERED: PROPOFOL 200 MG/20 ML VIAL ONE (16:22)
[2022-05-07] MEDS ORDERED: Morphine 4 MG/ML VIAL SLOW IVP PRN (17:03)
[2022-05-07] MEDS ORDERED: Hydrocodone-Acetamin 15 ML UDCUP PO PRN (17:03)
[2022-05-07] MEDS: Atorvastatin Calcium 20 MG TAB PO SCH (20:08)
[2022-05-07] MEDS: Latanoprost 0.005% Ophth Soln 2.5 ml Bottle EA EYE SCH (20:09)
[2022-05-07 20:26] LABS: Potassium 3.5 mmol/L (3.5-5.1)
[2022-05-08] MEDS: Potassium Chloride 20 MEQ in Premix Bag 1 BAG IVPB SCH ×2 (00:58→02:54)
[2022-05-08] MEDS: HumaLOG 300 UNITS/3 ML VIAL SC PRN ×3 (03:21→16:41)
[2022-05-08 06:30] LABS: #Lymphocytes 0.8 thou/uL (1.20-3.40); #Monocytes 0.3 thou/uL (0.11-0.59); %Eosinophils 0.2 % (0.0-10.0); %Monocytes 2.6 % (0.0-10.0); %Neutrophils 90.1 % (42.0-75.0); Mean Corpuscular HGB CONC 31.8 g/dL (32.0-36.0); Mean Corpuscular Hemoglobin 31.9 pg (27.0-31.0); Mean Platelet Volume 8.6 fL (7.4-10.4); Platelet Count 180 10x3/uL (130-400); Red Blood Cell (RBC) Count 4.08 mill/uL (4.70-6.10)
[2022-05-08 06:48] LABS: Anion Gap 9 mmol/L (10-20); BUN (Urea Nitrogen) 13 mg/dL (8.4-25.7); Calc. Creatinine Clearance 82 mL/min (70-130); Calcium 8.3 mg/dL (7.8-10.44); Carbon Dioxide 26 mmol/L (23-31); Chloride 115 mmol/L (98-107); Estimated GFR 94; Glucose 256 mg/dL (83-110); Potassium 4.4 mmol/L (3.5-5.1); Sodium 146 mmol/L (136-145)
[2022-05-08] MEDS: Dextrose 5%-Lactated Ringers 1,000 ML IV SCH ×2 (09:44→16:48)
[2022-05-08] MEDS: Insulin Glargine 30 UNITS/0.3 ML VIAL SC SCH ×2 (09:46→22:01)
[2022-05-08] MEDS: Tamsulosin HCl 0.4 MG CAP PO SCH (09:46)
[2022-05-08] MEDS: Heparin 5,000 UNITS/ML VIAL SC SCH ×2 (09:46→22:02)
[2022-05-08] MEDS: Bisacodyl 10 MG SUPP PR SCH (09:47)
[2022-05-08] MEDS: Fish Oil 1,000 MG CAP PO SCH (09:47)
[2022-05-08] MEDS: Carvedilol 6.25 MG TAB PO SCH ×2 (09:47→22:00)
[2022-05-08] MEDS: Amiodarone 200 MG TAB PER TUBE SCH (09:47)
[2022-05-08] MEDS: Amlodipine 10 MG TAB PO SCH (09:47)
[2022-05-08] MEDS: Ferrous Sulfate 325 MG TAB PO SCH (09:48)
[2022-05-08] MEDS: Polyethylene Glycol 3350 17 GM Packet PO SCH (09:48)
[2022-05-08] MEDS: Timolol 0.5% Ophth Soln 5 ml Bottle R EYE SCH ×3 (11:01→23:25)
[2022-05-08] MEDS: Atorvastatin Calcium 20 MG TAB PO SCH (22:00)
[2022-05-08] MEDS: Latanoprost 0.005% Ophth Soln 2.5 ml Bottle EA EYE SCH ×2 (22:54→23:28)
[2022-05-09] MEDS: HumaLOG 300 UNITS/3 ML VIAL SC PRN ×4 (04:54→21:00)
[2022-05-09] MEDS: Dextrose 5%-Lactated Ringers 1,000 ML IV SCH (05:28)
[2022-05-09 08:05] LABS: #Lymphocytes 1.2 thou/uL (1.20-3.40); #Monocytes 0.6 thou/uL (0.11-0.59); #Neutrophils 10.2 thou/uL (1.40-6.50); %Eosinophils 0.1 % (0.0-10.0); %Lymphocytes 10.1 % (21.0-51.0); %Monocytes 5.3 % (0.0-10.0); %Neutrophils 84.5 % (42.0-75.0); Hemoglobin 11.7 g/dL (14.0-18.0); Mean Corpuscular HGB CONC 31.5 g/dL (32.0-36.0); Mean Corpuscular Hemoglobin 31.7 pg (27.0-31.0); Mean Platelet Volume 8.5 fL (7.4-10.4); Platelet Count 195 10x3/uL (130-400); Red Blood Cell (RBC) Count 3.69 mill/uL (4.70-6.10); White Blood Cell (WBC) Count 12.1 10x3/uL (4.8-10.8)
[2022-05-09 08:28] LABS: Anion Gap 9 mmol/L (10-20); BUN (Urea Nitrogen) 19 mg/dL (8.4-25.7); Calc. Creatinine Clearance 77 mL/min (70-130); Calcium 8.1 mg/dL (7.8-10.44); Carbon Dioxide 28 mmol/L (23-31); Chloride 115 mmol/L (98-107); Estimated GFR 92; Glucose 309 mg/dL (83-110); Potassium 3.7 mmol/L (3.5-5.1); Sodium 148 mmol/L (136-145)
[2022-05-09] MEDS: Ferrous Sulfate 325 MG TAB PO SCH (09:53)
[2022-05-09] MEDS: Amlodipine 10 MG TAB PO SCH (09:53)
[2022-05-09] MEDS: Amiodarone 200 MG TAB PER TUBE SCH (09:53)
[2022-05-09] MEDS: Insulin Glargine 30 UNITS/0.3 ML VIAL SC SCH ×2 (09:54→20:59)
[2022-05-09] MEDS: Polyethylene Glycol 3350 17 GM Packet PO SCH (09:54)
[2022-05-09] MEDS: Timolol 0.5% Ophth Soln 5 ml Bottle R EYE SCH ×2 (09:54→21:01)
[2022-05-09] MEDS: Fish Oil 1,000 MG CAP PO SCH (09:54)
[2022-05-09] MEDS: Carvedilol 6.25 MG TAB PO SCH ×2 (09:54→20:59)
[2022-05-09] MEDS: Tamsulosin HCl 0.4 MG CAP PO SCH (09:54)
[2022-05-09] MEDS: Heparin 5,000 UNITS/ML VIAL SC SCH ×2 (09:54→21:00)
[2022-05-09] MEDS: Bisacodyl 10 MG SUPP PR SCH (09:55)
[2022-05-09] MEDS ORDERED: Dextrose 5% in Water 1,000 ML IV SCH (16:45)
[2022-05-09] MEDS: Atorvastatin Calcium 20 MG TAB PO SCH (20:59)
[2022-05-09] MEDS: Latanoprost 0.005% Ophth Soln 2.5 ml Bottle EA EYE SCH (21:01)
[2022-05-10] MEDS: HumaLOG 300 UNITS/3 ML VIAL SC PRN ×3 (05:51→19:54)
[2022-05-10 06:14] LABS: #Eosinphils 0.1 thou/uL (0.0-0.7); #Lymphocytes 1.2 thou/uL (1.20-3.40); #Monocytes 0.5 thou/uL (0.11-0.59); #Neutrophils 7.7 thou/uL (1.40-6.50); %Eosinophils 1.3 % (0.0-10.0); %Lymphocytes 12.9 % (21.0-51.0); %Monocytes 5.1 % (0.0-10.0); %Neutrophils 80.7 % (42.0-75.0); Hemoglobin 11.8 g/dL (14.0-18.0); Mean Corpuscular HGB CONC 32.7 g/dL (32.0-36.0); Mean Corpuscular Hemoglobin 32.6 pg (27.0-31.0); Mean Corpuscular Volume 99.6 fl (78.0-98.0); Mean Platelet Volume 8.8 fL (7.4-10.4); Platelet Count 188 10x3/uL (130-400); Red Blood Cell (RBC) Count 3.61 mill/uL (4.70-6.10); White Blood Cell (WBC) Count 9.6 10x3/uL (4.8-10.8)
[2022-05-10 06:45] LABS: Anion Gap 9 mmol/L (10-20); BUN (Urea Nitrogen) 17 mg/dL (8.4-25.7); Calc. Creatinine Clearance 86 mL/min (70-130); Calcium 8.2 mg/dL (7.8-10.44); Carbon Dioxide 29 mmol/L (23-31); Chloride 111 mmol/L (98-107); Estimated GFR 93; Glucose 271 mg/dL (83-110); Potassium 3.9 mmol/L (3.5-5.1); Sodium 145 mmol/L (136-145)
[2022-05-10] MEDS: Ferrous Sulfate 325 MG TAB PO SCH (08:52)
[2022-05-10] MEDS: Amiodarone 200 MG TAB PER TUBE SCH (08:52)
[2022-05-10] MEDS: Heparin 5,000 UNITS/ML VIAL SC SCH ×2 (08:52→20:02)
[2022-05-10] MEDS: Carvedilol 6.25 MG TAB PO SCH ×2 (08:52→20:02)
[2022-05-10] MEDS: Fish Oil 1,000 MG CAP PO SCH (08:52)
[2022-05-10] MEDS: Amlodipine 10 MG TAB PO SCH (08:52)
[2022-05-10] MEDS: Insulin Glargine 30 UNITS/0.3 ML VIAL SC SCH ×2 (08:53→20:02)
[2022-05-10] MEDS: Tamsulosin HCl 0.4 MG CAP PO SCH (08:53)
[2022-05-10] MEDS: Timolol 0.5% Ophth Soln 5 ml Bottle R EYE SCH ×2 (08:53→20:02)
[2022-05-10] MEDS: Polyethylene Glycol 3350 17 GM Packet PO SCH (08:53)
[2022-05-10] MEDS: Bisacodyl 10 MG SUPP PR SCH (09:11)
[2022-05-10] MEDS: Atorvastatin Calcium 20 MG TAB PO SCH (20:02)
[2022-05-10] MEDS: Latanoprost 0.005% Ophth Soln 2.5 ml Bottle EA EYE SCH (20:02)
[2022-05-11] MEDS: HumaLOG 300 UNITS/3 ML VIAL SC PRN ×2 (05:24→11:28)
[2022-05-11 07:13] LABS: Anion Gap 10 mmol/L (10-20); BUN (Urea Nitrogen) 18 mg/dL (8.4-25.7); Calc. Creatinine Clearance 91 mL/min (70-130); Calcium 8.3 mg/dL (7.8-10.44); Carbon Dioxide 27 mmol/L (23-31); Chloride 110 mmol/L (98-107); Estimated GFR 94; Glucose 242 mg/dL (83-110); Potassium 3.8 mmol/L (3.5-5.1); Sodium 143 mmol/L (136-145)
[2022-05-11 08:04] VITALS: TEMP 98.2
[2022-05-11] MEDS: Insulin Glargine 30 UNITS/0.3 ML VIAL SC SCH (09:33)
[2022-05-11] MEDS: Tamsulosin HCl 0.4 MG CAP PO SCH (09:34)
[2022-05-11] MEDS: Polyethylene Glycol 3350 17 GM Packet PO SCH (09:34)
[2022-05-11] MEDS: Heparin 5,000 UNITS/ML VIAL SC SCH (09:34)
[2022-05-11] MEDS: Carvedilol 6.25 MG TAB PO SCH (09:34)
[2022-05-11] MEDS: Amlodipine 10 MG TAB PO SCH (09:34)
[2022-05-11] MEDS: Fish Oil 1,000 MG CAP PO SCH (09:34)
[2022-05-11] MEDS: Ferrous Sulfate 325 MG TAB PO SCH (09:35)
[2022-05-11] MEDS: Timolol 0.5% Ophth Soln 5 ml Bottle R EYE SCH (09:35)
[2022-05-11] MEDS: Bisacodyl 10 MG SUPP PR SCH (09:35)
[2022-05-11] MEDS: Amiodarone 200 MG TAB PER TUBE SCH (09:35)
[2022-05-11 09:51] VITALS: BP 124/79
== END 2022-05-11 15:01 | DRG 56 ==
LOC: ERS 12:53 → T4-B 16:17 → IMCU/EMU 04-27 18:27 → T4-B 05-02 20:07
PROVIDERS: ADMIT Internal Medicine; ATTEND Internal Medicine
PROC: 0DJ08ZZ Inspection of Upper Intestinal Tract, Via Natural or Artificial Opening Endoscopic (ICD-10-PCS; 2022-04-26)
PROC: 8E0ZXY6 Isolation (ICD-10-PCS; 2022-05-01)
PROC: 0DH63UZ Insertion of Feeding Device into Stomach, Percutaneous Approach (ICD-10-PCS; principal; 2022-05-07)
PROC: 0DJ08ZZ Inspection of Upper Intestinal Tract, Via Natural or Artificial Opening Endoscopic (ICD-10-PCS; 2022-05-07)
DX: I69.391 Dysphagia following cerebral infarction (principal); E11.10 Type 2 diabetes mellitus with ketoacidosis without coma; G93.41 Metabolic encephalopathy; U07.1 COVID-19; E87.0 Hyperosmolality and hypernatremia; I50.22 Chronic systolic (congestive) heart failure; N17.9 Acute kidney failure, unspecified; N40.0 Benign prostatic hyperplasia without lower urinary tract symptoms; H40.9 Unspecified glaucoma; I11.0 Hypertensive heart disease with heart failure; R13.12 Dysphagia, oropharyngeal phase; Z53.8 Procedure and treatment not carried out for other reasons; K29.60 Other gastritis without bleeding; H91.90 Unspecified hearing loss, unspecified ear; E86.1 Hypovolemia; E86.9 Volume depletion, unspecified; E86.0 Dehydration; E87.6 Hypokalemia; E83.39 Other disorders of phosphorus metabolism; Z90.49 Acquired absence of other specified parts of digestive tract; I69.320 Aphasia following cerebral infarction; Z79.899 Other long term (current) drug therapy; Z79.84 Long term (current) use of oral hypoglycemic drugs
CPT/HCPCS: 36415; 36416; 36600; 51701; 70450; 71045; 74018; 80048; 81001; 81003; 82010; 82040; 82550; 82570; 82805; 83735; 83930; 84100; 84156; 84300; 85025; 85610; 85730; 93306; 96360; J1100; J1644; J1815; J2060; J2370; J2405; J2704; J3010; J3475; J3480; J3490; J7050; J7070; P9045; P9047

== ENCOUNTER 2022-05-17 23:10 | Emergency (ER) | payer MEDICARE, OTHER ==
[2022-05-17] MEDS ORDERED: Piperacillin/Tazobactam 3.375 GM VIAL ONE (23:49)
[2022-05-18 00:02] LABS: #Eosinphils 0.1 thou/uL (0.0-0.7); #Monocytes 0.8 thou/uL (0.11-0.59); #Neutrophils 12.3 thou/uL (1.40-6.50); %Basophils 0.1 % (0.0-1.0); %Lymphocytes 7.2 % (21.0-51.0); %Monocytes 5.6 % (0.0-10.0); %Neutrophils 86.1 % (42.0-75.0); Hemoglobin 10.5 g/dL (14.0-18.0); Mean Corpuscular HGB CONC 33.4 g/dL (32.0-36.0); Mean Corpuscular Hemoglobin 32.4 pg (27.0-31.0); Mean Corpuscular Volume 96.8 fl (78.0-98.0); Mean Platelet Volume 9.1 fL (7.4-10.4); Platelet Count 255 10x3/uL (130-400); Red Blood Cell (RBC) Count 3.26 mill/uL (4.70-6.10); White Blood Cell (WBC) Count 14.2 10x3/uL (4.8-10.8)
[2022-05-18 00:22] LABS: ALT (SGPT) 36 U/L (8-55); AST (SGOT) 38 U/L (5-34); Albumin 2.1 g/dL (3.4-4.8); Alkaline Phosphatase 110 U/L (40-110); Anion Gap 10 mmol/L (10-20); BUN (Urea Nitrogen) 36 mg/dL (8.4-25.7); Bilirubin, Total 0.8 mg/dL (0.2-1.2); Calc. Creatinine Clearance 0 mL/min (70-130); Calcium 7.7 mg/dL (7.8-10.44); Carbon Dioxide 29 mmol/L (23-31); Chloride 107 mmol/L (98-107); Estimated GFR 83; Globulin 3.2 g/dL (2.4-3.5); Glucose 175 mg/dL (83-110); Lipase 26 U/L (8-78); Magnesium 1.9 mg/dL (1.6-2.6); Potassium 4.1 mmol/L (3.5-5.1); Protein, Total 5.3 g/dL (5.8-8.1); Sodium 142 mmol/L (136-145)
[2022-05-18] MEDS ORDERED: Vancomycin 1 GM/200 ML (FROZEN) BAG ONE (01:34)
[2022-05-18 01:45] LABS: Bacteria/HPF None Seen HPF (None Seen); Bilirubin Negative (Negative); Blood, Urine 3+ (Negative); Clarity Turbid (Clear); Glucose, Urine (Dipstick) Greater than 1000 mg/dL (Negative); Ketone, Urine Negative (Negative); Leukocyte 500 Leu/uL (Negative); Nitrite Negative (Negative); Protein, Urine (Dipstick) 20 mg/dL (Neg-Trace); Specific Gravity, Urine 1.031 (1.002-1.036); Squamous Epithelial 0-3 HPF (0-3); Urobilinogen Normal mg/dL (Less than 2); WBC/HPF Greater than 50 HPF (0-3); pH, Urine 7.5 (5.0-9.0)
[2022-05-18] MEDS ORDERED: Iopamidol-370 76% 500 ML 1 ML ONE (10:59)
== END 2022-05-18 05:33 | disposition home or self-care (01) ==
LOC: ERS 23:10
DX: T85.79XA Infection and inflammatory reaction due to other internal prosthetic devices, implants and grafts, initial encounter (principal); J69.0 Pneumonitis due to inhalation of food and vomit; D72.829 Elevated white blood cell count, unspecified; E11.9 Type 2 diabetes mellitus without complications; I11.0 Hypertensive heart disease with heart failure; I50.9 Heart failure, unspecified; Z79.84 Long term (current) use of oral hypoglycemic drugs; Z79.899 Other long term (current) drug therapy; Z79.4 Long term (current) use of insulin
CPT/HCPCS: 71045; 74177; 80053; 83605; 83690; 83735; 85025; 87040; 87070; 87077; 87086; 87186; 87205; 93005; J3370; 81003; 81015; 96374; 96375; J2543; Q9967

== ENCOUNTER 2022-05-26 13:10 | Inpatient (IN) | payer MEDICARE, OTHER ==
[~2022-05-26 13:10] MED LIST: Iopamidol-370 76% 500 ML 1 ML ONE
[2022-05-26] MEDS ORDERED: Acetaminophen 650 MG Suppository ONE (13:41)
[2022-05-26] MEDS ORDERED: Vancomycin 1 GM/200 ML (FROZEN) BAG ONE (13:43)
[2022-05-26] MEDS ORDERED: Piperacillin/Tazobactam 3.375 GM VIAL ONE (13:45)
[2022-05-26 14:11] LABS: Bacteria/HPF 1+ HPF (None Seen); Bilirubin Negative (Negative); Blood, Urine Negative (Negative); Clarity Clear (Clear); Glucose, Urine (Dipstick) 70 mg/dL (Negative); Ketone, Urine Negative (Negative); Leukocyte 75 Leu/uL (Negative); Nitrite Negative (Negative); Protein, Urine (Dipstick) 20 mg/dL (Neg-Trace); RBC/HPF 0-3 HPF (0-3); Specific Gravity, Urine 1.023 (1.002-1.036); Squamous Epithelial 0-3 HPF (0-3)
[2022-05-26] MEDS ORDERED: NOREPINEPHRINE 8 MG/250 ML-D5W 250 ML ONE (14:30)
[2022-05-26 14:43] LABS: #Eosinphils 0.1 thou/uL (0.0-0.7); #Lymphocytes 1.2 thou/uL (1.20-3.40); #Monocytes 0.6 thou/uL (0.11-0.59); #Neutrophils 7.5 thou/uL (1.40-6.50); %Basophils 0.2 % (0.0-1.0); %Eosinophils 1.5 % (0.0-10.0); %Lymphocytes 12.2 % (21.0-51.0); %Monocytes 6.5 % (0.0-10.0); %Neutrophils 79.7 % (42.0-75.0); Hemoglobin 6.6 g/dL (14.0-18.0); Mean Corpuscular Hemoglobin 32.7 pg (27.0-31.0); Mean Corpuscular Volume 98.9 fl (78.0-98.0); Mean Platelet Volume 8.5 fL (7.4-10.4); Platelet Count 169 10x3/uL (130-400); RBC Distribution Width 14.4 % (11.5-14.5); Red Blood Cell (RBC) Count 2.01 mill/uL (4.70-6.10); White Blood Cell (WBC) Count 9.5 10x3/uL (4.8-10.8)
[2022-05-26 14:54] LABS: SARS-CoV-2 NAA Rapid Test DETECTED (NotDetected)
[2022-05-26 15:22] LABS: ALT (SGPT) 121 U/L (8-55); AST (SGOT) 143 U/L (5-34); Albumin 1.1 g/dL (3.4-4.8); Alkaline Phosphatase 70 U/L (40-110); Anion Gap 8 mmol/L (10-20); BUN (Urea Nitrogen) 30 mg/dL (8.4-25.7); Bilirubin, Total 0.5 mg/dL (0.2-1.2); Calc. Creatinine Clearance 0 mL/min (70-130); Carbon Dioxide 15 mmol/L (23-31); Chloride 129 mmol/L (98-107); Estimated GFR 92; Globulin 2.2 g/dL (2.4-3.5); Lipase 7 U/L (8-78); Magnesium 1.4 mg/dL (1.6-2.6); Protein, Total 3.3 g/dL (5.8-8.1); Sodium 149 mmol/L (136-145)
[2022-05-26 15:58] LABS: Calcium 5.4 mg/dL (7.8-10.44); Glucose 59 mg/dL (83-110); Potassium 2.6 mmol/L (3.5-5.1)
[2022-05-26] MEDS ORDERED: Dextrose 50% Abboject 50 ML SYRINGE ONE (16:36)
[2022-05-26] MEDS ORDERED: Potassium Chloride 20 MEQ/100 ML PREMIX BAG ONE (17:32)
[2022-05-26] MEDS ORDERED: Ondansetron PF 4 MG/2 ML Vial IVP PRN (17:51)
[2022-05-26] MEDS ORDERED: Lidocaine 1% w/Epinephrine 1:100K 20 ML VIAL ONE (17:52)
[2022-05-26] MEDS ORDERED: Calcium Gluc 4.6 MEQ/10 ML (100 MG/ML) SLOW IVP ONE (17:55)
[2022-05-26] MEDS ORDERED: Sodium Bicarbonate 150 MEQ in Dextrose 5% in Water 1,000 ML IV SCH (18:00)
[2022-05-26] MEDS ORDERED: Albumin 25% 25 GM/100 ML BOT IVPB SCH (18:00)
[2022-05-26] MEDS ORDERED: Acetaminophen 650 MG Suppository PR PRN (18:02)
[2022-05-26 18:11] LABS: Glucose 126 mg/dL (83-110)
[2022-05-26] MEDS ORDERED: CALCIUM GLUC 1 GM/NS 50 ML 1 GM in Premix Bag 1 BAG IVPB SCH (18:15)
[2022-05-26] MEDS ORDERED: Magnesium 2 GM/50 ML(in water) 2 GM in Premix Bag 1 BAG IVPB SCH (18:15)
[2022-05-26 18:44] LABS: #Eosinphils 0.3 thou/uL (0.0-0.7); #Lymphocytes 1.4 thou/uL (1.20-3.40); #Monocytes 0.9 thou/uL (0.11-0.59); #Neutrophils 11.4 thou/uL (1.40-6.50); %Basophils 0.2 % (0.0-1.0); %Lymphocytes 10.2 % (21.0-51.0); %Monocytes 6.4 % (0.0-10.0); %Neutrophils 81.1 % (42.0-75.0); Hemoglobin 9.1 g/dL (14.0-18.0); Mean Corpuscular HGB CONC 32.6 g/dL (32.0-36.0); Mean Corpuscular Hemoglobin 31.9 pg (27.0-31.0); Mean Corpuscular Volume 97.8 fl (78.0-98.0); Mean Platelet Volume 8.5 fL (7.4-10.4); Platelet Count 272 10x3/uL (130-400); RBC Distribution Width 14.6 % (11.5-14.5); Red Blood Cell (RBC) Count 2.85 mill/uL (4.70-6.10); White Blood Cell (WBC) Count 14.1 10x3/uL (4.8-10.8)
[2022-05-26] MEDS ORDERED: Dexamethasone 10 MG/ML VIAL SLOW IVP SCH (18:45)
[2022-05-26 18:53] LABS: Iron 15 ug/dL (65-175); Iron Binding Capacity, Total 115 mcg/dL (261-462)
[2022-05-26 19:07] LABS: Anion Gap 9 mmol/L (10-20); BUN (Urea Nitrogen) 37 mg/dL (8.4-25.7); Calc. Creatinine Clearance 0 mL/min (70-130); Calcium 7.7 mg/dL (7.8-10.44); Carbon Dioxide 22 mmol/L (23-31); Chloride 120 mmol/L (98-107); Estimated GFR 63; Glucose 129 mg/dL (83-110); Iron 13 ug/dL (65-175); Iron Binding Capacity, Total 113 mcg/dL (261-462); Potassium 3.6 mmol/L (3.5-5.1); Sodium 147 mmol/L (136-145)
[2022-05-26 19:23] LABS: INR-International Normal Ratio 1.4; PTT 35.4 sec (22.9-36.1); Prothrombin Time 17.9 sec (12.0-14.7)
[2022-05-26 20:48] LABS: Actual Bicarbonate (HCO3a) 22.9 mEq/L (22-28); Base Excess (BEa) -0.4 mEq/L (-2.0 to +3.0); CO2 Tension 32.2 mmHg (35.0-45.0); Calcium, Ionized (arterial) 1.21 mmol/L (1.12-1.30); Carboxyhemoglobin (COHb) 0.3 gm% (0.0-3.0); Hemoglobin (Hb) 9.8 g/dL (14.0-18.0); O2 Tension (PaO2), arterial 85.1 mmHg (> 70.0); Potassium - ABG Lab 3.58 mmol/L (3.70-5.30); Puncture Site RBA; pH, Arterial 7.47 (7.35-7.45)
[2022-05-26] MEDS: Piperacillin/Tazobactam 3.375 GM in Sodium Chloride 0.9% 100 ML IVPB SCH (21:00)
[2022-05-26] MEDS: Dextrose 5 %-0.45 % NaCl 1,000 ML IV SCH (22:25)
[2022-05-26] MEDS ORDERED: Piperacillin/Tazobactam 3.375 GM in Sodium Chloride 0.9% 100 ML IVPB SCH (23:00)
[2022-05-26 23:11] LABS: Hemoglobin 8.5 g/dL (14.0-18.0)
[2022-05-26] MEDS ORDERED: Vancomycin HCl 500 MG in Sodium Chloride 0.9% 100 ML IVPB SCH (23:30)
[2022-05-27] MEDS: NOREPINEPHRINE 8 MG/250 ML-D5W 250 ML IVPB PRN ×3 (03:59→22:00)
[2022-05-27] MEDS: Piperacillin/Tazobactam 3.375 GM in Sodium Chloride 0.9% 100 ML IVPB SCH ×3 (04:00→21:38)
[2022-05-27 04:21] LABS: #Lymphocytes 0.6 thou/uL (1.20-3.40); #Monocytes 0.1 thou/uL (0.11-0.59); #Neutrophils 10.6 thou/uL (1.40-6.50); %Eosinophils 0.3 % (0.0-10.0); %Monocytes 1.2 % (0.0-10.0); %Neutrophils 93.5 % (42.0-75.0); Mean Corpuscular HGB CONC 31.9 g/dL (32.0-36.0); Mean Corpuscular Hemoglobin 31.8 pg (27.0-31.0); Mean Corpuscular Volume 99.7 fl (78.0-98.0); Mean Platelet Volume 8.4 fL (7.4-10.4); Platelet Count 256 10x3/uL (130-400); RBC Distribution Width 14.7 % (11.5-14.5); Red Blood Cell (RBC) Count 2.84 mill/uL (4.70-6.10); White Blood Cell (WBC) Count 11.3 10x3/uL (4.8-10.8)
[2022-05-27 04:39] LABS: INR-International Normal Ratio 1.4; PTT 35.4 sec (22.9-36.1)
[2022-05-27 04:47] LABS: ALT (SGPT) 159 U/L (8-55); AST (SGOT) 135 U/L (5-34); Albumin 2.2 g/dL (3.4-4.8); Alkaline Phosphatase 99 U/L (40-110); Anion Gap 13 mmol/L (10-20); BUN (Urea Nitrogen) 39 mg/dL (8.4-25.7); Calc. Creatinine Clearance 55 mL/min (70-130); Calcium 8.1 mg/dL (7.8-10.44); Carbon Dioxide 20 mmol/L (23-31); Chloride 118 mmol/L (98-107); Estimated GFR 59; Globulin 3.2 g/dL (2.4-3.5); Glucose 223 mg/dL (83-110); Magnesium 2.5 mg/dL (1.6-2.6); Potassium 4.3 mmol/L (3.5-5.1); Protein, Total 5.4 g/dL (5.8-8.1); Sodium 147 mmol/L (136-145)
[2022-05-27] MEDS: Dexamethasone 10 MG/ML VIAL SLOW IVP SCH (09:38)
[2022-05-27] MEDS: Pantoprazole 40 MG VIAL IVP SCH (09:38)
[2022-05-27] MEDS: Cholecalciferol 1,000 UNITS (25 MCG) TAB PO SCH (09:38)
[2022-05-27] MEDS: Zinc Sulfate 220 MG CAP PO SCH (09:38)
[2022-05-27] MEDS: Dextrose 5 %-0.45 % NaCl 1,000 ML IV SCH (09:39)
[2022-05-27] MEDS: Sodium Chloride 0.45% 1,000 ML IV SCH (10:00)
[2022-05-27] MEDS ORDERED: Sodium Chloride 0.9% 1,000 ML IV SCH ×2 (10:15→12:15)
[2022-05-27] MEDS: Albumin 25% 25 GM/100 ML BOT IVPB SCH (13:27)
[2022-05-27] MEDS ORDERED: Dextrose 50% Abboject 50 ML SYRINGE SLOW IVP PRN (14:33)
[2022-05-27] MEDS ORDERED: Dextrose 5% in Water 1,000 ML IV PRN (14:33)
[2022-05-27] MEDS: HumaLOG 300 UNITS/3 ML VIAL SC PRN ×2 (16:13→23:40)
[2022-05-27] MEDS: VANCOMYCIN 1.25 GM/250 ML BAG 1.25 GM in Premix Bag 1 BAG IVPB SCH (23:28)
[2022-05-28] MEDS: Sodium Chloride 0.45% 1,000 ML IV SCH ×2 (00:30→17:34)
[2022-05-28] MEDS: Albumin 25% 25 GM/100 ML BOT IVPB SCH ×3 (03:45→12:00)
[2022-05-28] MEDS: Piperacillin/Tazobactam 3.375 GM in Sodium Chloride 0.9% 100 ML IVPB SCH ×3 (04:01→21:07)
[2022-05-28 04:55] LABS: #Lymphocytes 0.6 thou/uL (1.20-3.40); #Monocytes 1.1 thou/uL (0.11-0.59); #Neutrophils 14.7 thou/uL (1.40-6.50); %Eosinophils 0.1 % (0.0-10.0); %Lymphocytes 3.9 % (21.0-51.0); %Monocytes 6.8 % (0.0-10.0); %Neutrophils 89.3 % (42.0-75.0); Hemoglobin 8.4 g/dL (14.0-18.0); Mean Corpuscular HGB CONC 31.9 g/dL (32.0-36.0); Mean Corpuscular Hemoglobin 32.1 pg (27.0-31.0); Mean Platelet Volume 8.3 fL (7.4-10.4); Platelet Count 311 10x3/uL (130-400); RBC Distribution Width 14.6 % (11.5-14.5); Red Blood Cell (RBC) Count 2.62 mill/uL (4.70-6.10); White Blood Cell (WBC) Count 16.5 10x3/uL (4.8-10.8)
[2022-05-28 05:14] LABS: ALT (SGPT) 158 U/L (8-55); AST (SGOT) 118 U/L (5-34); Albumin 2.1 g/dL (3.4-4.8); Alkaline Phosphatase 76 U/L (40-110); Anion Gap 17 mmol/L (10-20); BUN (Urea Nitrogen) 48 mg/dL (8.4-25.7); Bilirubin, Total 0.8 mg/dL (0.2-1.2); Calc. Creatinine Clearance 44 mL/min (70-130); Calcium 7.5 mg/dL (7.8-10.44); Carbon Dioxide 16 mmol/L (23-31); Chloride 117 mmol/L (98-107); Estimated GFR 43; Glucose 390 mg/dL (83-110); Magnesium 2.4 mg/dL (1.6-2.6); Potassium 4.4 mmol/L (3.5-5.1); Protein, Total 5.1 g/dL (5.8-8.1); Sodium 146 mmol/L (136-145)
[2022-05-28] MEDS: NOREPINEPHRINE 8 MG/250 ML-D5W 250 ML IVPB PRN (06:30)
[2022-05-28] MEDS: Dexamethasone 10 MG/ML VIAL SLOW IVP SCH (09:29)
[2022-05-28] MEDS: Cholecalciferol 1,000 UNITS (25 MCG) TAB PO SCH (09:29)
[2022-05-28] MEDS: Zinc Sulfate 220 MG CAP PO SCH (09:29)
[2022-05-28] MEDS: Pantoprazole 40 MG VIAL IVP SCH (09:29)
[2022-05-28] MEDS ORDERED: Heparin 5,000 UNITS/ML VIAL SC SCH ×2 (09:30→21:00)
[2022-05-28] MEDS ORDERED: Dextrose 5%-Lactated Ringers 1,000 ML IV SCH (09:30)
[2022-05-28] MEDS: HumaLOG 300 UNITS/3 ML VIAL SC PRN ×2 (11:53→18:31)
[2022-05-28] MEDS: Amiodarone 450 MG in Dextrose 5% in Water 250 ML IVPB SCH (20:38)
[2022-05-28] MEDS: Metoclopramide HCl 10 MG/2 ML VIAL IVP SCH (20:59)
[2022-05-28] MEDS: Nystatin 500,000 UNITS/5 ML UDCUP SSW SCH (20:59)
[2022-05-28] MEDS: Insulin Glargine 30 UNITS/0.3 ML VIAL SC SCH (21:16)
[2022-05-28 22:55] LABS: Vancomycin, Trough 18.6 ug/mL
[2022-05-29] MEDS: VANCOMYCIN 1.25 GM/250 ML BAG 1.25 GM in Premix Bag 1 BAG IVPB SCH (00:58)
[2022-05-29] MEDS: Piperacillin/Tazobactam 3.375 GM in Sodium Chloride 0.9% 100 ML IVPB SCH ×3 (04:42→20:56)
[2022-05-29 04:56] LABS: #Lymphocytes 0.4 thou/uL (1.20-3.40); #Monocytes 0.4 thou/uL (0.11-0.59); #Neutrophils 10.9 thou/uL (1.40-6.50); %Eosinophils 0.1 % (0.0-10.0); %Lymphocytes 3.4 % (21.0-51.0); %Monocytes 3.3 % (0.0-10.0); %Neutrophils 93.2 % (42.0-75.0); Hemoglobin 8.5 g/dL (14.0-18.0); Mean Corpuscular HGB CONC 32.4 g/dL (32.0-36.0); Mean Corpuscular Hemoglobin 32.4 pg (27.0-31.0); Mean Platelet Volume 8.3 fL (7.4-10.4); Platelet Count 235 10x3/uL (130-400); RBC Distribution Width 14.7 % (11.5-14.5); Red Blood Cell (RBC) Count 2.61 mill/uL (4.70-6.10); White Blood Cell (WBC) Count 11.7 10x3/uL (4.8-10.8)
[2022-05-29 05:14] LABS: ALT (SGPT) 98 U/L (8-55); AST (SGOT) 69 U/L (5-34); Albumin 2.4 g/dL (3.4-4.8); Alkaline Phosphatase 66 U/L (40-110); Anion Gap 11 mmol/L (10-20); BUN (Urea Nitrogen) 42 mg/dL (8.4-25.7); Bilirubin, Total 0.6 mg/dL (0.2-1.2); Calc. Creatinine Clearance 54 mL/min (70-130); Calcium 7.1 mg/dL (7.8-10.44); Carbon Dioxide 20 mmol/L (23-31); Chloride 122 mmol/L (98-107); Estimated GFR 53; Globulin 2.2 g/dL (2.4-3.5); Glucose 296 mg/dL (83-110); Magnesium 2.5 mg/dL (1.6-2.6); Potassium 3.5 mmol/L (3.5-5.1); Protein, Total 4.6 g/dL (5.8-8.1); Sodium 149 mmol/L (136-145)
[2022-05-29] MEDS: HumaLOG 300 UNITS/3 ML VIAL SC PRN ×3 (05:53→17:23)
[2022-05-29] MEDS: Metoclopramide HCl 10 MG/2 ML VIAL IVP SCH ×3 (05:55→22:37)
[2022-05-29] MEDS: Cholecalciferol 1,000 UNITS (25 MCG) TAB PO SCH (09:43)
[2022-05-29] MEDS: Pantoprazole 40 MG VIAL IVP SCH (09:43)
[2022-05-29] MEDS: Zinc Sulfate 220 MG CAP PO SCH (09:44)
[2022-05-29] MEDS: Nystatin 500,000 UNITS/5 ML UDCUP SSW SCH ×4 (09:47→20:56)
[2022-05-29] MEDS: Dexamethasone 10 MG/ML VIAL SLOW IVP SCH (09:47)
[2022-05-29] MEDS: Sodium Chloride 0.45% 1,000 ML IV SCH ×2 (09:49→22:43)
[2022-05-29] MEDS ORDERED: Artificial Tear Sol 15 ML BOT EA EYE PRN (20:03)
[2022-05-29] MEDS: Amiodarone 450 MG in Dextrose 5% in Water 250 ML IVPB SCH (20:57)
[2022-05-29] MEDS: Latanoprost 0.005% Ophth Soln 2.5 ml Bottle EA EYE SCH (21:01)
[2022-05-29] MEDS: Timolol 0.5% Ophth Soln 5 ml Bottle R EYE SCH (21:01)
[2022-05-29] MEDS: Insulin Glargine 30 UNITS/0.3 ML VIAL SC SCH (22:37)
[2022-05-30 00:55] LABS: #Lymphocytes 0.4 thou/uL (1.20-3.40); #Monocytes 0.3 thou/uL (0.11-0.59); %Basophils 0.1 % (0.0-1.0); %Eosinophils 0.1 % (0.0-10.0); %Lymphocytes 3.9 % (21.0-51.0); %Monocytes 3.2 % (0.0-10.0); %Neutrophils 92.7 % (42.0-75.0); Hemoglobin 8.8 g/dL (14.0-18.0); Mean Corpuscular HGB CONC 33.1 g/dL (32.0-36.0); Mean Corpuscular Hemoglobin 33.1 pg (27.0-31.0); Mean Corpuscular Volume 99.8 fl (78.0-98.0); Mean Platelet Volume 8.5 fL (7.4-10.4); Platelet Count 224 10x3/uL (130-400); RBC Distribution Width 14.7 % (11.5-14.5); Red Blood Cell (RBC) Count 2.67 mill/uL (4.70-6.10); White Blood Cell (WBC) Count 9.7 10x3/uL (4.8-10.8)
[2022-05-30 01:26] LABS: Anion Gap 11 mmol/L (10-20); BUN (Urea Nitrogen) 36 mg/dL (8.4-25.7); Calc. Creatinine Clearance 67 mL/min (70-130); Carbon Dioxide 20 mmol/L (23-31); Chloride 122 mmol/L (98-107); Estimated GFR 67; Glucose 223 mg/dL (83-110); Magnesium 2.4 mg/dL (1.6-2.6); Potassium 3.4 mmol/L (3.5-5.1); Sodium 150 mmol/L (136-145)
[2022-05-30] MEDS ORDERED: Electrolyte Replacement Protocol 1 EACH FS PRN (01:45)
[2022-05-30] MEDS ORDERED: Potassium Chloride 40 MEQ in Premix Bag 1 BAG IVPB SCH (02:00)
[2022-05-30] MEDS: Piperacillin/Tazobactam 3.375 GM in Sodium Chloride 0.9% 100 ML IVPB SCH ×3 (04:19→20:03)
[2022-05-30] MEDS ORDERED: FLU VACC QS2022-23(65YR UP)/PF 240 MCG/0.7 ML SYRINGE IM ONE (05:45)
[2022-05-30] MEDS: HumaLOG 300 UNITS/3 ML VIAL SC PRN ×4 (06:08→21:58)
[2022-05-30] MEDS: Metoclopramide HCl 10 MG/2 ML VIAL IVP SCH ×3 (06:08→21:17)
[2022-05-30] MEDS: Nystatin 500,000 UNITS/5 ML UDCUP SSW SCH ×4 (08:59→20:04)
[2022-05-30] MEDS: Dexamethasone 10 MG/ML VIAL SLOW IVP SCH (09:00)
[2022-05-30] MEDS: Cholecalciferol 1,000 UNITS (25 MCG) TAB PO SCH (09:00)
[2022-05-30] MEDS: Pantoprazole 40 MG VIAL IVP SCH (09:00)
[2022-05-30] MEDS: Timolol 0.5% Ophth Soln 5 ml Bottle R EYE SCH ×2 (09:01→20:05)
[2022-05-30] MEDS: Zinc Sulfate 220 MG CAP PO SCH (09:02)
[2022-05-30 11:15] LABS: Phosphorus 2.6 mg/dL (2.3-4.7)
[2022-05-30 11:58] LABS: Cardiac Risk 2.7 (Less than 4.5)
[2022-05-30] MEDS ORDERED: Furosemide 40 MG/4 ML VIAL SLOW IVP SCH (12:15)
[2022-05-30] MEDS: Amiodarone 450 MG in Dextrose 5% in Water 250 ML IVPB SCH ×2 (12:30→23:55)
[2022-05-30] MEDS ORDERED: Sterile Water 0 ML ONE (13:09)
[2022-05-30] MEDS ORDERED: Sterile Water 20 ML ONE (13:10)
[2022-05-30] MEDS: Dextrose 5% in Water 1,000 ML IV SCH (13:45)
[2022-05-30] MEDS: Potassium ACETATE 20 MEQ, Potassium Phosphate 30 MMOL, Calcium Gluconate 10 MEQ, Magnes... IV SCH (16:36)
[2022-05-30] MEDS: Insulin Glargine 30 UNITS/0.3 ML VIAL SC SCH (20:04)
[2022-05-30] MEDS: Latanoprost 0.005% Ophth Soln 2.5 ml Bottle EA EYE SCH (20:04)
[2022-05-31] MEDS: Dextrose 5% in Water 1,000 ML IV SCH (01:24)
[2022-05-31] MEDS: Piperacillin/Tazobactam 3.375 GM in Sodium Chloride 0.9% 100 ML IVPB SCH ×3 (03:04→20:36)
[2022-05-31 04:47] LABS: #Lymphocytes 0.4 thou/uL (1.20-3.40); #Monocytes 0.4 thou/uL (0.11-0.59); #Neutrophils 8.9 thou/uL (1.40-6.50); %Eosinophils 0.4 % (0.0-10.0); %Lymphocytes 3.7 % (21.0-51.0); %Monocytes 4.2 % (0.0-10.0); %Neutrophils 91.6 % (42.0-75.0); Hemoglobin 9.5 g/dL (14.0-18.0); Mean Corpuscular HGB CONC 32.3 g/dL (32.0-36.0); Mean Corpuscular Hemoglobin 32.5 pg (27.0-31.0); Mean Platelet Volume 8.5 fL (7.4-10.4); Platelet Count 252 10x3/uL (130-400); RBC Distribution Width 14.5 % (11.5-14.5); Red Blood Cell (RBC) Count 2.93 mill/uL (4.70-6.10); White Blood Cell (WBC) Count 9.8 10x3/uL (4.8-10.8)
[2022-05-31 05:00] LABS: Anion Gap 10 mmol/L (10-20); BUN (Urea Nitrogen) 31 mg/dL (8.4-25.7); Calc. Creatinine Clearance 71 mL/min (70-130); Carbon Dioxide 20 mmol/L (23-31); Chloride 120 mmol/L (98-107); Estimated GFR 72; Magnesium 2.3 mg/dL (1.6-2.6); Potassium 3.8 mmol/L (3.5-5.1); Sodium 146 mmol/L (136-145)
[2022-05-31 05:04] LABS: Glucose 425 mg/dL (83-110)
[2022-05-31] MEDS: HumaLOG 300 UNITS/3 ML VIAL SC PRN ×4 (05:13→21:45)
[2022-05-31] MEDS: Metoclopramide HCl 10 MG/2 ML VIAL IVP SCH ×3 (05:20→21:49)
[2022-05-31] MEDS: Zinc Sulfate 220 MG CAP PO SCH (07:36)
[2022-05-31] MEDS: Cholecalciferol 1,000 UNITS (25 MCG) TAB PO SCH (07:36)
[2022-05-31] MEDS: Pantoprazole 40 MG VIAL IVP SCH (07:43)
[2022-05-31] MEDS: Timolol 0.5% Ophth Soln 5 ml Bottle R EYE SCH ×2 (07:44→21:47)
[2022-05-31] MEDS: Nystatin 500,000 UNITS/5 ML UDCUP SSW SCH ×4 (08:12→20:38)
[2022-05-31] MEDS: Sodium Chloride 0.45% 1,000 ML IV SCH (10:02)
[2022-05-31] MEDS: Potassium ACETATE 20 MEQ, Potassium Phosphate 30 MMOL, Calcium Gluconate 10 MEQ, Magnes... IV SCH (14:13)
[2022-05-31] MEDS: Insulin Glargine 30 UNITS/0.3 ML VIAL SC SCH (20:38)
[2022-05-31] MEDS: Latanoprost 0.005% Ophth Soln 2.5 ml Bottle EA EYE SCH (21:49)
[2022-06-01] MEDS: Piperacillin/Tazobactam 3.375 GM in Sodium Chloride 0.9% 100 ML IVPB SCH ×3 (04:37→20:58)
[2022-06-01] MEDS: Metoclopramide HCl 10 MG/2 ML VIAL IVP SCH ×3 (06:28→21:14)
[2022-06-01] MEDS: HumaLOG 300 UNITS/3 ML VIAL SC PRN ×4 (06:59→21:05)
[2022-06-01] MEDS: Amiodarone 450 MG in Dextrose 5% in Water 250 ML IVPB SCH (08:47)
[2022-06-01] MEDS: Zinc Sulfate 220 MG CAP PO SCH (08:54)
[2022-06-01] MEDS: Cholecalciferol 1,000 UNITS (25 MCG) TAB PO SCH (08:54)
[2022-06-01] MEDS: Nystatin 500,000 UNITS/5 ML UDCUP SSW SCH ×4 (09:34→21:19)
[2022-06-01] MEDS: Timolol 0.5% Ophth Soln 5 ml Bottle R EYE SCH ×2 (09:34→21:07)
[2022-06-01] MEDS: Pantoprazole 40 MG VIAL IVP SCH (09:35)
[2022-06-01] MEDS: Potassium ACETATE 20 MEQ, Potassium Phosphate 30 MMOL, Calcium Gluconate 10 MEQ, Magnes... IV SCH (14:22)
[2022-06-01] MEDS: Insulin Glargine 30 UNITS/0.3 ML VIAL SC SCH (21:05)
[2022-06-01] MEDS: Latanoprost 0.005% Ophth Soln 2.5 ml Bottle EA EYE SCH (21:06)
[2022-06-02] MEDS: Amiodarone 450 MG in Dextrose 5% in Water 250 ML IVPB SCH ×2 (00:24→17:03)
[2022-06-02 04:58] LABS: #Eosinphils 0.6 thou/uL (0.0-0.7); #Lymphocytes 0.8 thou/uL (1.20-3.40); #Monocytes 0.7 thou/uL (0.11-0.59); #Neutrophils 9.3 thou/uL (1.40-6.50); %Eosinophils 5.4 % (0.0-10.0); %Lymphocytes 7.4 % (21.0-51.0); %Monocytes 5.9 % (0.0-10.0); %Neutrophils 81.3 % (42.0-75.0); Hemoglobin 10.6 g/dL (14.0-18.0); Mean Corpuscular HGB CONC 31.7 g/dL (32.0-36.0); Mean Corpuscular Hemoglobin 31.8 pg (27.0-31.0); Mean Platelet Volume 8.7 fL (7.4-10.4); Platelet Count 245 10x3/uL (130-400); RBC Distribution Width 14.9 % (11.5-14.5); Red Blood Cell (RBC) Count 3.32 mill/uL (4.70-6.10); White Blood Cell (WBC) Count 11.4 10x3/uL (4.8-10.8)
[2022-06-02] MEDS: Piperacillin/Tazobactam 3.375 GM in Sodium Chloride 0.9% 100 ML IVPB SCH ×3 (05:03→20:20)
[2022-06-02] MEDS: Metoclopramide HCl 10 MG/2 ML VIAL IVP SCH ×3 (05:04→23:13)
[2022-06-02 05:27] LABS: Anion Gap 8 mmol/L (10-20); BUN (Urea Nitrogen) 32 mg/dL (8.4-25.7); Calc. Creatinine Clearance 90 mL/min (70-130); Calcium 7.6 mg/dL (7.8-10.44); Carbon Dioxide 20 mmol/L (23-31); Chloride 120 mmol/L (98-107); Estimated GFR 90; Glucose 384 mg/dL (83-110); Sodium 144 mmol/L (136-145)
[2022-06-02] MEDS: HumaLOG 300 UNITS/3 ML VIAL SC PRN ×3 (05:52→17:21)
[2022-06-02 09:31] LABS: Phosphorus 2.3 mg/dL (2.3-4.7)
[2022-06-02] MEDS: Nystatin 500,000 UNITS/5 ML UDCUP SSW SCH ×4 (10:17→20:21)
[2022-06-02] MEDS: Pantoprazole 40 MG VIAL IVP SCH (10:17)
[2022-06-02] MEDS: Timolol 0.5% Ophth Soln 5 ml Bottle R EYE SCH ×2 (10:19→22:49)
[2022-06-02] MEDS: Cholecalciferol 1,000 UNITS (25 MCG) TAB PO SCH (10:19)
[2022-06-02] MEDS: Zinc Sulfate 220 MG CAP PO SCH (10:29)
[2022-06-02] MEDS ORDERED: [UNRECOGNIZED DRUG - OTHER] IV SCH (14:00)
[2022-06-02] MEDS ORDERED: POTASSIUM ACETATE IV SCH (14:00)
[2022-06-02] MEDS ORDERED: POTASSIUM PHOSPHATE IV SCH (14:00)
[2022-06-02] MEDS ORDERED: SODIUM ACETATE IV SCH (14:00)
[2022-06-02] MEDS: Insulin Glargine 30 UNITS/0.3 ML VIAL SC SCH (20:22)
[2022-06-02] MEDS: Latanoprost 0.005% Ophth Soln 2.5 ml Bottle EA EYE SCH (22:52)
[2022-06-03 04:26] LABS: ALT (SGPT) 53 U/L (8-55); AST (SGOT) 20 U/L (5-34); Albumin 1.9 g/dL (3.4-4.8); Alkaline Phosphatase 78 U/L (40-110); Anion Gap 9 mmol/L (10-20); BUN (Urea Nitrogen) 31 mg/dL (8.4-25.7); Bilirubin, Total 0.4 mg/dL (0.2-1.2); Calc. Creatinine Clearance 97 mL/min (70-130); Carbon Dioxide 19 mmol/L (23-31); Chloride 121 mmol/L (98-107); Estimated GFR 92; Globulin 2.8 g/dL (2.4-3.5); Phosphorus 2.5 mg/dL (2.3-4.7); Potassium 4.2 mmol/L (3.5-5.1); Protein, Total 4.7 g/dL (5.8-8.1); Sodium 145 mmol/L (136-145)
[2022-06-03 04:27] LABS: Glucose 431 mg/dL (83-110)
[2022-06-03] MEDS: Piperacillin/Tazobactam 3.375 GM in Sodium Chloride 0.9% 100 ML IVPB SCH (04:50)
[2022-06-03] MEDS: HumaLOG 300 UNITS/3 ML VIAL SC PRN ×2 (04:51→18:12)
[2022-06-03] MEDS: Metoclopramide HCl 10 MG/2 ML VIAL IVP SCH ×3 (05:14→22:21)
[2022-06-03] MEDS: Amiodarone 450 MG in Dextrose 5% in Water 250 ML IVPB SCH (06:46)
[2022-06-03] MEDS: Cholecalciferol 1,000 UNITS (25 MCG) TAB PO SCH (07:38)
[2022-06-03 09:03] VITALS: BMI 28.5
[2022-06-03] MEDS: Zinc Sulfate 220 MG CAP PO SCH (10:12)
[2022-06-03] MEDS: Insulin Glargine 30 UNITS/0.3 ML VIAL SC SCH ×2 (10:44→20:33)
[2022-06-03] MEDS: Enalaprilat Dihydrate 1.25 MG/ML VIAL SLOW IVP SCH ×3 (10:45→22:21)
[2022-06-03] MEDS: Nystatin 500,000 UNITS/5 ML UDCUP SSW SCH ×4 (10:48→20:33)
[2022-06-03] MEDS: Pantoprazole 40 MG VIAL IVP SCH (10:48)
[2022-06-03] MEDS: Timolol 0.5% Ophth Soln 5 ml Bottle R EYE SCH ×2 (10:49→20:34)
[2022-06-03] MEDS: Latanoprost 0.005% Ophth Soln 2.5 ml Bottle EA EYE SCH (20:34)
[2022-06-04] MEDS: Metoclopramide HCl 10 MG/2 ML VIAL IVP SCH ×3 (05:07→22:30)
[2022-06-04] MEDS: Enalaprilat Dihydrate 1.25 MG/ML VIAL SLOW IVP SCH ×3 (05:08→17:51)
[2022-06-04] MEDS: Pantoprazole 40 MG VIAL IVP SCH (09:07)
[2022-06-04] MEDS: Zinc Sulfate 220 MG CAP PO SCH (09:07)
[2022-06-04] MEDS: Cholecalciferol 1,000 UNITS (25 MCG) TAB PO SCH (09:07)
[2022-06-04] MEDS: Nystatin 500,000 UNITS/5 ML UDCUP SSW SCH ×4 (09:07→22:31)
[2022-06-04] MEDS: Timolol 0.5% Ophth Soln 5 ml Bottle R EYE SCH ×2 (09:08→22:32)
[2022-06-04] MEDS: Insulin Glargine 30 UNITS/0.3 ML VIAL SC SCH ×2 (09:08→22:53)
[2022-06-04] MEDS: Carvedilol 6.25 MG TAB PO SCH (16:31)
[2022-06-04 20:23] LABS: Calcium 7.8 mg/dL (7.8-10.44); Chloride 122 mmol/L (98-107); Potassium 4.3 mmol/L (3.5-5.1); Sodium 147 mmol/L (136-145)
[2022-06-04 20:24] LABS: Globulin 2.8 g/dL (2.4-3.5); Glucose 75 mg/dL (83-110); Protein, Total 4.8 g/dL (5.8-8.1)
[2022-06-04 20:25] LABS: Carbon Dioxide 20 mmol/L (23-31)
[2022-06-04 20:26] LABS: Anion Gap 9 mmol/L (10-20); Bilirubin, Total 0.4 mg/dL (0.2-1.2)
[2022-06-04 20:27] LABS: Alkaline Phosphatase 108 U/L (40-110); Calc. Creatinine Clearance 106 mL/min (70-130); Estimated GFR 96; Phosphorus 2.4 mg/dL (2.3-4.7)
[2022-06-04 20:28] LABS: BUN (Urea Nitrogen) 23 mg/dL (8.4-25.7)
[2022-06-04 20:29] LABS: AST (SGOT) 41 U/L (5-34)
[2022-06-04 20:30] LABS: ALT (SGPT) 51 U/L (8-55); Magnesium 1.9 mg/dL (1.6-2.6)
[2022-06-04] MEDS ORDERED: Atorvastatin Calcium 20 MG TAB PER TUBE SCH (21:00)
[2022-06-04] MEDS: Brimonidine Tartrate 0.2% Ophth Soln 5 ml Bottle R EYE SCH (22:31)
[2022-06-04] MEDS: Latanoprost 0.005% Ophth Soln 2.5 ml Bottle EA EYE SCH (22:32)
[2022-06-05] MEDS: Enalaprilat Dihydrate 1.25 MG/ML VIAL SLOW IVP SCH ×3 (00:54→12:00)
[2022-06-05] MEDS: Metoclopramide HCl 10 MG/2 ML VIAL IVP SCH ×2 (05:55→14:04)
[2022-06-05] MEDS ORDERED: Losartan 25 MG TAB PO SCH (09:00)
[2022-06-05] MEDS ORDERED: FLUoxetine HCl 20 MG CAP PO SCH (09:00)
[2022-06-05] MEDS ORDERED: Amiodarone 200 MG TAB PO SCH (09:00)
[2022-06-05] MEDS ORDERED: Amlodipine 10 MG TAB PO SCH (09:00)
[2022-06-05] MEDS: Nystatin 500,000 UNITS/5 ML UDCUP SSW SCH ×2 (10:09→14:04)
[2022-06-05] MEDS: Zinc Sulfate 220 MG CAP PO SCH (10:10)
[2022-06-05] MEDS: Cholecalciferol 1,000 UNITS (25 MCG) TAB PO SCH (10:11)
[2022-06-05] MEDS: Pantoprazole 40 MG VIAL IVP SCH (10:11)
[2022-06-05] MEDS: Carvedilol 6.25 MG TAB PO SCH (10:12)
[2022-06-05] MEDS: Brimonidine Tartrate 0.2% Ophth Soln 5 ml Bottle R EYE SCH (10:13)
[2022-06-05] MEDS: Timolol 0.5% Ophth Soln 5 ml Bottle R EYE SCH (10:14)
[2022-06-05] MEDS: Insulin Glargine 30 UNITS/0.3 ML VIAL SC SCH (10:14)
[2022-06-05 10:28] LABS: Anion Gap 8 mmol/L (10-20); BUN (Urea Nitrogen) 26 mg/dL (8.4-25.7); Calc. Creatinine Clearance 112 mL/min (70-130); Carbon Dioxide 23 mmol/L (23-31); Chloride 120 mmol/L (98-107); Potassium 4.4 mmol/L (3.5-5.1); Sodium 147 mmol/L (136-145)
[2022-06-05 10:29] LABS: ALT (SGPT) 79 U/L (8-55); AST (SGOT) 65 U/L (5-34); Albumin 1.8 g/dL (3.4-4.8); Alkaline Phosphatase 196 U/L (40-110); Bilirubin, Total 0.4 mg/dL (0.2-1.2); Calcium 7.8 mg/dL (7.8-10.44); Estimated GFR 97; Glucose 90 mg/dL (83-110); Magnesium 1.9 mg/dL (1.6-2.6); Phosphorus 1.9 mg/dL (2.3-4.7); Protein, Total 4.8 g/dL (5.8-8.1)
[2022-06-05 12:35] VITALS: BP 104/53
[2022-06-05 12:36] VITALS: TEMP 97.7
== END 2022-06-05 14:55 | DRG 356 ==
LOC: ERS 13:10 → CCU 17:54 → 2NO 05-31 12:54
PROVIDERS: ADMIT Internal Medicine; ATTEND Hospitalist
PROC: 8E0ZXY6 Isolation (ICD-10-PCS; principal; 2022-05-26)
PROC: 0JB80ZZ Excision of Abdomen Subcutaneous Tissue and Fascia, Open Approach (ICD-10-PCS; 2022-05-26)
PROC: 0DP6XUZ Removal of Feeding Device from Stomach, External Approach (ICD-10-PCS; 2022-05-26)
PROC: 06HY33Z Insertion of Infusion Device into Lower Vein, Percutaneous Approach (ICD-10-PCS; 2022-05-26)
PROC: 3E033XZ Introduction of Vasopressor into Peripheral Vein, Percutaneous Approach (ICD-10-PCS; 2022-05-26)
PROC: 3E0333Z Introduction of Anti-inflammatory into Peripheral Vein, Percutaneous Approach (ICD-10-PCS; 2022-05-26)
PROC: 30233J1 Transfusion of Nonautologous Serum Albumin into Peripheral Vein, Percutaneous Approach (ICD-10-PCS; 2022-05-26)
PROC: 3E0336Z Introduction of Nutritional Substance into Peripheral Vein, Percutaneous Approach (ICD-10-PCS; 2022-05-30)
PROC: 3E0336Z Introduction of Nutritional Substance into Peripheral Vein, Percutaneous Approach (ICD-10-PCS; 2022-05-30)
PROC: 0DH63UZ Insertion of Feeding Device into Stomach, Percutaneous Approach (ICD-10-PCS; 2022-05-30)
DX: K94.23 Gastrostomy malfunction (principal); A41.52 Sepsis due to Pseudomonas; G93.41 Metabolic encephalopathy; R65.21 Severe sepsis with septic shock; J96.01 Acute respiratory failure with hypoxia; U07.1 COVID-19; J69.0 Pneumonitis due to inhalation of food and vomit; N39.0 Urinary tract infection, site not specified; T83.511A Infection and inflammatory reaction due to indwelling urethral catheter, initial encounter; I50.32 Chronic diastolic (congestive) heart failure; E87.0 Hyperosmolality and hypernatremia; E11.52 Type 2 diabetes mellitus with diabetic peripheral angiopathy with gangrene; Y83.8 Other surgical procedures as the cause of abnormal reaction of the patient, or of later complication, without mention of misadventure at the time of the procedure; N40.0 Benign prostatic hyperplasia without lower urinary tract symptoms; F41.9 Anxiety disorder, unspecified; F32.A Depression, unspecified; D64.9 Anemia, unspecified; Z20.822 Contact with and (suspected) exposure to COVID-19; E11.649 Type 2 diabetes mellitus with hypoglycemia without coma; K52.9 Noninfective gastroenteritis and colitis, unspecified; E87.8 Other disorders of electrolyte and fluid balance, not elsewhere classified; R74.8 Abnormal levels of other serum enzymes; I48.0 Paroxysmal atrial fibrillation; I11.0 Hypertensive heart disease with heart failure; E88.09 Other disorders of plasma-protein metabolism, not elsewhere classified; K59.00 Constipation, unspecified; I35.0 Nonrheumatic aortic (valve) stenosis; E87.6 Hypokalemia; Z86.73 Personal history of transient ischemic attack (TIA), and cerebral infarction without residual deficits; Z90.49 Acquired absence of other specified parts of digestive tract; Z79.4 Long term (current) use of insulin; Z79.899 Other long term (current) drug therapy; Z79.84 Long term (current) use of oral hypoglycemic drugs
CPT/HCPCS: 36415; 36416; 36600; 70450; 71045; 74018; 74177; 80048; 80053; 80061; 80202; 81003; 81015; 82728; 82805; 83540; 83550; 83605; 83690; 83735; 83880; 84100; 84134; 84443; 84484; 85025; 85610; 85730; 86850; 86900; 86901; 87040; 87077; 87086; 87186; 87324; 87449; 93005; 93010; 96361; 96365; 96366; 96367; 96368; 96375; 97139; C9113; J0282; J0610; J0611; J1100; J1644; J1650; J1815; J1940; J2543; J2765; J3370; J3370-JW; J3475; J3480; J3490; J7042; J7050; J7070; J7999; P9047; Q9967; U0002

== ENCOUNTER 2022-06-11 09:53 | Inpatient (IN) | payer MEDICARE, OTHER ==
[2022-06-11 12:22] LABS: #Basophils 0.1 thou/uL (0.0-0.2); #Eosinphils 0.2 thou/uL (0.0-0.7); #Lymphocytes 1.1 thou/uL (1.20-3.40); #Monocytes 0.5 thou/uL (0.11-0.59); #Neutrophils 7.9 thou/uL (1.40-6.50); %Basophils 0.6 % (0.0-1.0); %Eosinophils 2.1 % (0.0-10.0); %Monocytes 4.7 % (0.0-10.0); %Neutrophils 81.6 % (42.0-75.0); Hemoglobin 9.4 g/dL (14.0-18.0); Mean Corpuscular HGB CONC 32.5 g/dL (32.0-36.0); Mean Corpuscular Hemoglobin 32.5 pg (27.0-31.0); Mean Platelet Volume 8.6 fL (7.4-10.4); Platelet Count 212 10x3/uL (130-400); RBC Distribution Width 15.6 % (11.5-14.5); Red Blood Cell (RBC) Count 2.88 mill/uL (4.70-6.10); White Blood Cell (WBC) Count 9.6 10x3/uL (4.8-10.8)
[2022-06-11 12:25] LABS: Bacteria/HPF None Seen HPF (None Seen); Bilirubin Negative (Negative); Blood, Urine Trace (Negative); Clarity Turbid (Clear); Glucose, Urine (Dipstick) 500 mg/dL (Negative); Ketone, Urine Negative (Negative); Leukocyte 500 Leu/uL (Negative); Nitrite Negative (Negative); Protein, Urine (Dipstick) 30 mg/dL (Neg-Trace); Specific Gravity, Urine 1.015 (1.002-1.036); Squamous Epithelial 0-3 HPF (0-3); WBC/HPF 21-50 HPF (0-3); Yeast-Budding 3+ HPF (None Seen); Yeast-Hyphae 1+ HPF (None Seen)
[2022-06-11 12:42] LABS: ALT (SGPT) 49 U/L (8-55); AST (SGOT) 32 U/L (5-34); Albumin 1.9 g/dL (3.4-4.8); Alkaline Phosphatase 190 U/L (40-110); Anion Gap 11 mmol/L (10-20); BUN (Urea Nitrogen) 18 mg/dL (8.4-25.7); Bilirubin, Total 0.5 mg/dL (0.2-1.2); Calc. Creatinine Clearance 0 mL/min (70-130); Calcium 8.1 mg/dL (7.8-10.44); Carbon Dioxide 28 mmol/L (23-31); Chloride 117 mmol/L (98-107); Estimated GFR 95; Globulin 3.1 g/dL (2.4-3.5); Glucose 234 mg/dL (83-110); Potassium 3.9 mmol/L (3.5-5.1)
[2022-06-11 12:57] LABS: Sodium 152 mmol/L (136-145)
[2022-06-11] MEDS ORDERED: cefTRIAXone\\ROCEPHIN 1 GM VIAL ONE (13:35)
[2022-06-11] MEDS ORDERED: Bisacodyl 10 MG SUPP PR PRN ×2 (15:09→15:57)
[2022-06-11] MEDS ORDERED: Acetaminophen 325 MG TAB PO PRN ×2 (15:09→15:57)
[2022-06-11 15:48] LABS: SARS-CoV-2 NAA Rapid Test Not Detected (NotDetected)
[2022-06-11] MEDS ORDERED: Dextrose 50% Abboject 50 ML SYRINGE SLOW IVP PRN (15:48)
[2022-06-11] MEDS ORDERED: Dextrose 5% in Water 1,000 ML IV PRN (15:48)
[2022-06-11] MEDS ORDERED: Calcium Carbonate 500 MG ChewTAB PO PRN (15:57)
[2022-06-11] MEDS ORDERED: Meropenem 1 GM in Sodium Chloride 0.9% 100 ML IVPB SCH (17:00)
[2022-06-11] MEDS: Brimonidine Tartrate 0.2% Ophth Soln 5 ml Bottle R EYE SCH (21:13)
[2022-06-11] MEDS: Artificial Tear Sol 15 ML BOT EA EYE PRN (21:13)
[2022-06-11] MEDS: Timolol 0.5% Ophth Soln 5 ml Bottle R EYE SCH (21:13)
[2022-06-11] MEDS: Sodium Chloride 0.45% 1,000 ML IV SCH (21:20)
[2022-06-11] MEDS: Atorvastatin Calcium 20 MG TAB PO SCH (23:30)
[2022-06-11] MEDS: Latanoprost 0.005% Ophth Soln 2.5 ml Bottle EA EYE SCH (23:30)
[2022-06-11] MEDS: Carvedilol 6.25 MG TAB PO SCH ×2 (23:30)
[2022-06-11] MEDS: Senokot 8.6 MG TAB PO SCH (23:30)
[2022-06-12] MEDS: Meropenem 1 GM in Sodium Chloride 0.9% 100 ML IVPB SCH ×3 (00:07→17:46)
[2022-06-12 05:08] LABS: #Eosinphils 0.2 thou/uL (0.0-0.7); #Lymphocytes 1.1 thou/uL (1.20-3.40); #Monocytes 0.6 thou/uL (0.11-0.59); #Neutrophils 8.3 thou/uL (1.40-6.50); %Basophils 0.4 % (0.0-1.0); %Lymphocytes 10.8 % (21.0-51.0); %Monocytes 5.6 % (0.0-10.0); %Neutrophils 81.2 % (42.0-75.0); Hemoglobin 10.5 g/dL (14.0-18.0); Mean Corpuscular HGB CONC 30.6 g/dL (32.0-36.0); Mean Corpuscular Hemoglobin 31.1 pg (27.0-31.0); Mean Platelet Volume 8.9 fL (7.4-10.4); Platelet Count 200 10x3/uL (130-400); RBC Distribution Width 15.4 % (11.5-14.5); Red Blood Cell (RBC) Count 3.39 mill/uL (4.70-6.10); White Blood Cell (WBC) Count 10.3 10x3/uL (4.8-10.8)
[2022-06-12 05:29] LABS: Anion Gap 10 mmol/L (10-20); BUN (Urea Nitrogen) 13 mg/dL (8.4-25.7); Calc. Creatinine Clearance 132 mL/min (70-130); Calcium 8.3 mg/dL (7.8-10.44); Carbon Dioxide 26 mmol/L (23-31); Chloride 115 mmol/L (98-107); Estimated GFR 100; Glucose 160 mg/dL (83-110); Sodium 147 mmol/L (136-145)
[2022-06-12] MEDS: Sodium Chloride 0.45% 1,000 ML IV SCH (06:23)
[2022-06-12] MEDS ORDERED: FLU VACC QS2022-23(65YR UP)/PF 240 MCG/0.7 ML SYRINGE IM ONE (09:00)
[2022-06-12] MEDS ORDERED: Amiodarone 200 MG TAB PO SCH (09:00)
[2022-06-12] MEDS ORDERED: Furosemide 40 MG/4 ML VIAL SLOW IVP SCH (09:15)
[2022-06-12] MEDS: Artificial Tear Sol 15 ML BOT EA EYE PRN (09:20)
[2022-06-12] MEDS: Brimonidine Tartrate 0.2% Ophth Soln 5 ml Bottle R EYE SCH ×3 (09:20→22:23)
[2022-06-12] MEDS: FLUoxetine HCl 20 MG CAP PO SCH (11:02)
[2022-06-12] MEDS: Amlodipine 10 MG TAB PO SCH (11:02)
[2022-06-12] MEDS: Timolol 0.5% Ophth Soln 5 ml Bottle R EYE SCH ×2 (11:02→22:23)
[2022-06-12] MEDS: Losartan 25 MG TAB PO SCH (11:03)
[2022-06-12] MEDS: Insulin Glargine 30 UNITS/0.3 ML VIAL SC SCH (11:03)
[2022-06-12] MEDS: Amiodarone 200 MG TAB PO SCH (11:03)
[2022-06-12] MEDS: Ferrous Sulfate 325 MG TAB PO SCH (11:04)
[2022-06-12] MEDS: Carvedilol 6.25 MG TAB PO SCH ×4 (11:04→22:22)
[2022-06-12] MEDS: Terazosin HCl 1 MG CAP PO SCH (11:06)
[2022-06-12] MEDS: Polyethylene Glycol 3350 17 GM Packet PO SCH (11:06)
[2022-06-12] MEDS: Multivit, Therapeutic 1 TAB PO SCH (11:06)
[2022-06-12] MEDS: Albumin 25% 25 GM/100 ML BOT IVPB SCH ×2 (12:39→16:53)
[2022-06-12] MEDS: Senokot 8.6 MG TAB PO SCH (22:22)
[2022-06-12] MEDS: Atorvastatin Calcium 20 MG TAB PO SCH (22:22)
[2022-06-12] MEDS: Latanoprost 0.005% Ophth Soln 2.5 ml Bottle EA EYE SCH (22:31)
[2022-06-13] MEDS: Albumin 25% 25 GM/100 ML BOT IVPB SCH ×2 (01:31→06:11)
[2022-06-13] MEDS: Meropenem 1 GM in Sodium Chloride 0.9% 100 ML IVPB SCH ×3 (03:01→16:39)
[2022-06-13 09:19] LABS: Anion Gap 11 mmol/L (10-20); BUN (Urea Nitrogen) 12 mg/dL (8.4-25.7); Calc. Creatinine Clearance 130 mL/min (70-130); Calcium 8.4 mg/dL (7.8-10.44); Carbon Dioxide 29 mmol/L (23-31); Chloride 111 mmol/L (98-107); Estimated GFR 99; Glucose 109 mg/dL (83-110); Potassium 3.1 mmol/L (3.5-5.1); Sodium 148 mmol/L (136-145)
[2022-06-13] MEDS ORDERED: Acetaminophen 325 MG TAB PER TUBE PRN ×2 (09:45)
[2022-06-13] MEDS ORDERED: Calcium Carbonate 500 MG ChewTAB PER TUBE PRN (09:45)
[2022-06-13] MEDS: Furosemide 40 MG/4 ML VIAL SLOW IVP SCH (09:49)
[2022-06-13] MEDS: Insulin Glargine 30 UNITS/0.3 ML VIAL SC SCH (09:49)
[2022-06-13] MEDS: Brimonidine Tartrate 0.2% Ophth Soln 5 ml Bottle R EYE SCH ×3 (09:49→21:25)
[2022-06-13] MEDS: Timolol 0.5% Ophth Soln 5 ml Bottle R EYE SCH ×2 (09:49→21:25)
[2022-06-13] MEDS: Carvedilol 6.25 MG TAB PO SCH (09:50)
[2022-06-13] MEDS: Ferrous Sulfate 325 MG TAB PO SCH (09:50)
[2022-06-13] MEDS: Amiodarone 200 MG TAB PO SCH (09:51)
[2022-06-13] MEDS: Multivit, Therapeutic 1 TAB PO SCH (09:51)
[2022-06-13] MEDS: Terazosin HCl 1 MG CAP PO SCH (09:51)
[2022-06-13] MEDS: Amlodipine 10 MG TAB PO SCH (09:51)
[2022-06-13] MEDS: FLUoxetine HCl 20 MG CAP PO SCH (09:51)
[2022-06-13] MEDS: Losartan 25 MG TAB PO SCH (09:52)
[2022-06-13] MEDS: Polyethylene Glycol 3350 17 GM Packet PO SCH (09:52)
[2022-06-13 10:10] LABS: #Eosinphils 0.2 thou/uL (0.0-0.7); #Lymphocytes 1.1 thou/uL (1.20-3.40); #Monocytes 0.4 thou/uL (0.11-0.59); #Neutrophils 6.6 thou/uL (1.40-6.50); %Basophils 0.5 % (0.0-1.0); %Eosinophils 2.4 % (0.0-10.0); %Lymphocytes 13.3 % (21.0-51.0); %Monocytes 5.3 % (0.0-10.0); %Neutrophils 78.5 % (42.0-75.0); Mean Corpuscular HGB CONC 32.3 g/dL (32.0-36.0); Mean Corpuscular Hemoglobin 32.1 pg (27.0-31.0); Mean Corpuscular Volume 99.6 fl (78.0-98.0); Mean Platelet Volume 8.3 fL (7.4-10.4); Platelet Count 183 10x3/uL (130-400); White Blood Cell (WBC) Count 8.4 10x3/uL (4.8-10.8)
[2022-06-13] MEDS: Potassium Chloride 20 MEQ in Premix Bag 1 BAG IVPB SCH ×2 (15:03→16:39)
[2022-06-13] MEDS ORDERED: Carvedilol 6.25 MG TAB PER TUBE SCH ×2 (17:00→18:15)
[2022-06-13] MEDS: Atorvastatin Calcium 20 MG TAB PER TUBE SCH (21:19)
[2022-06-13] MEDS: Senokot 8.6 MG TAB PER TUBE SCH (21:19)
[2022-06-13] MEDS: Latanoprost 0.005% Ophth Soln 2.5 ml Bottle EA EYE SCH (21:38)
[2022-06-14] MEDS: Meropenem 1 GM in Sodium Chloride 0.9% 100 ML IVPB SCH ×3 (01:09→16:48)
[2022-06-14 04:42] LABS: #Eosinphils 0.2 thou/uL (0.0-0.7); #Lymphocytes 1.3 thou/uL (1.20-3.40); #Monocytes 0.5 thou/uL (0.11-0.59); #Neutrophils 6.2 thou/uL (1.40-6.50); %Basophils 0.3 % (0.0-1.0); %Lymphocytes 15.4 % (21.0-51.0); %Monocytes 6.6 % (0.0-10.0); %Neutrophils 75.7 % (42.0-75.0); Hemoglobin 8.8 g/dL (14.0-18.0); Mean Corpuscular HGB CONC 31.8 g/dL (32.0-36.0); Mean Corpuscular Hemoglobin 31.7 pg (27.0-31.0); Mean Corpuscular Volume 99.6 fl (78.0-98.0); Mean Platelet Volume 8.8 fL (7.4-10.4); Platelet Count 176 10x3/uL (130-400); RBC Distribution Width 15.2 % (11.5-14.5); Red Blood Cell (RBC) Count 2.78 mill/uL (4.70-6.10); White Blood Cell (WBC) Count 8.2 10x3/uL (4.8-10.8)
[2022-06-14 05:05] LABS: Anion Gap 9 mmol/L (10-20); BUN (Urea Nitrogen) 26 mg/dL (8.4-25.7); Calc. Creatinine Clearance 112 mL/min (70-130); Calcium 8.5 mg/dL (7.8-10.44); Carbon Dioxide 31 mmol/L (23-31); Chloride 108 mmol/L (98-107); Estimated GFR 95; Glucose 136 mg/dL (83-110); Potassium 3.8 mmol/L (3.5-5.1); Sodium 144 mmol/L (136-145)
[2022-06-14] MEDS ORDERED: Amlodipine 10 MG TAB PER TUBE SCH (09:00)
[2022-06-14] MEDS ORDERED: Losartan 25 MG TAB PER TUBE SCH (09:00)
[2022-06-14] MEDS: Multivit, Therapeutic 1 TAB PER TUBE SCH ×2 (10:01→12:22)
[2022-06-14] MEDS: FLUoxetine HCl 20 MG CAP PER TUBE SCH ×2 (10:01→12:21)
[2022-06-14] MEDS: Terazosin HCl 1 MG CAP PER TUBE SCH ×2 (10:01→12:22)
[2022-06-14] MEDS: Carvedilol 6.25 MG TAB PER TUBE SCH ×3 (10:01→16:48)
[2022-06-14] MEDS: Insulin Glargine 30 UNITS/0.3 ML VIAL SC SCH ×2 (10:02→13:15)
[2022-06-14] MEDS: Furosemide 40 MG/4 ML VIAL SLOW IVP SCH (10:02)
[2022-06-14] MEDS: Ferrous Sulfate 325 MG TAB PO SCH ×2 (10:02→12:21)
[2022-06-14] MEDS: Amiodarone 200 MG TAB PER TUBE SCH ×2 (10:02→16:48)
[2022-06-14] MEDS: Brimonidine Tartrate 0.2% Ophth Soln 5 ml Bottle R EYE SCH ×3 (10:02→21:07)
[2022-06-14] MEDS: Timolol 0.5% Ophth Soln 5 ml Bottle R EYE SCH ×2 (10:03→21:07)
[2022-06-14] MEDS: Polyethylene Glycol 3350 17 GM Packet PER TUBE SCH ×2 (10:30→12:22)
[2022-06-14] MEDS: Pancrelipase DR 12,000 1 CAP FS PRN (11:56)
[2022-06-14 12:35] VITALS: BMI 32.3
[2022-06-14] MEDS: Latanoprost 0.005% Ophth Soln 2.5 ml Bottle EA EYE SCH (21:07)
[2022-06-14] MEDS: Senokot 8.6 MG TAB PER TUBE SCH (21:08)
[2022-06-14] MEDS: Atorvastatin Calcium 20 MG TAB PER TUBE SCH (21:08)
[2022-06-14] MEDS: HumaLOG 300 UNITS/3 ML VIAL SC PRN (21:35)
[2022-06-15] MEDS: Meropenem 1 GM in Sodium Chloride 0.9% 100 ML IVPB SCH ×3 (02:05→17:33)
[2022-06-15] MEDS: HumaLOG 300 UNITS/3 ML VIAL SC PRN ×3 (05:33→17:33)
[2022-06-15 08:02] LABS: #Basophils 0.1 thou/uL (0.0-0.2); #Eosinphils 0.2 thou/uL (0.0-0.7); #Monocytes 0.6 thou/uL (0.11-0.59); #Neutrophils 5.8 thou/uL (1.40-6.50); %Basophils 0.7 % (0.0-1.0); %Eosinophils 2.5 % (0.0-10.0); %Lymphocytes 13.3 % (21.0-51.0); %Monocytes 8.1 % (0.0-10.0); %Neutrophils 75.4 % (42.0-75.0); Hemoglobin 8.9 g/dL (14.0-18.0); Mean Corpuscular HGB CONC 31.6 g/dL (32.0-36.0); Mean Corpuscular Hemoglobin 31.3 pg (27.0-31.0); Mean Corpuscular Volume 98.9 fl (78.0-98.0); Mean Platelet Volume 8.7 fL (7.4-10.4); Platelet Count 179 10x3/uL (130-400); Red Blood Cell (RBC) Count 2.84 mill/uL (4.70-6.10); White Blood Cell (WBC) Count 7.6 10x3/uL (4.8-10.8)
[2022-06-15 08:23] LABS: ALT (SGPT) 35 U/L (8-55); AST (SGOT) 28 U/L (5-34); Albumin 2.3 g/dL (3.4-4.8); Alkaline Phosphatase 151 U/L (40-110); Anion Gap 9 mmol/L (10-20); BUN (Urea Nitrogen) 24 mg/dL (8.4-25.7); Bilirubin, Total 0.5 mg/dL (0.2-1.2); Calc. Creatinine Clearance 105 mL/min (70-130); Calcium 8.2 mg/dL (7.8-10.44); Carbon Dioxide 31 mmol/L (23-31); Chloride 105 mmol/L (98-107); Estimated GFR 92; Globulin 2.5 g/dL (2.4-3.5); Glucose 283 mg/dL (83-110); Potassium 3.5 mmol/L (3.5-5.1); Protein, Total 4.8 g/dL (5.8-8.1); Sodium 141 mmol/L (136-145)
[2022-06-15] MEDS: FLUoxetine HCl 20 MG CAP PER TUBE SCH (09:26)
[2022-06-15] MEDS: Polyethylene Glycol 3350 17 GM Packet PER TUBE SCH (09:26)
[2022-06-15] MEDS: Terazosin HCl 1 MG CAP PER TUBE SCH (09:26)
[2022-06-15] MEDS: Ferrous Sulfate 325 MG TAB PO SCH (09:26)
[2022-06-15] MEDS: Carvedilol 6.25 MG TAB PER TUBE SCH ×2 (09:27→17:34)
[2022-06-15] MEDS: Insulin Glargine 30 UNITS/0.3 ML VIAL SC SCH ×2 (09:27→23:04)
[2022-06-15] MEDS: Amiodarone 200 MG TAB PER TUBE SCH (09:27)
[2022-06-15] MEDS: Multivit, Therapeutic 1 TAB PER TUBE SCH (09:27)
[2022-06-15] MEDS: Timolol 0.5% Ophth Soln 5 ml Bottle R EYE SCH ×2 (09:28→23:04)
[2022-06-15] MEDS: Brimonidine Tartrate 0.2% Ophth Soln 5 ml Bottle R EYE SCH ×3 (09:28→23:04)
[2022-06-15] MEDS: Pancrelipase DR 12,000 1 CAP FS PRN (22:32)
[2022-06-15] MEDS: Latanoprost 0.005% Ophth Soln 2.5 ml Bottle EA EYE SCH (23:03)
[2022-06-15] MEDS: Atorvastatin Calcium 20 MG TAB PER TUBE SCH (23:05)
[2022-06-15] MEDS: Senokot 8.6 MG TAB PER TUBE SCH (23:05)
[2022-06-16] MEDS: Meropenem 1 GM in Sodium Chloride 0.9% 100 ML IVPB SCH ×2 (02:30→09:19)
[2022-06-16] MEDS: Insulin Glargine 30 UNITS/0.3 ML VIAL SC SCH ×2 (08:56→20:41)
[2022-06-16] MEDS ORDERED: Sodium Bicarbonate Tab 325 MG TAB PER TUBE PRN (10:00)
[2022-06-16] MEDS ORDERED: Acetaminophen 650 MG/20.3 ML UDCUP PER TUBE PRN (11:12)
[2022-06-16] MEDS: Multivit, Therapeutic 1 TAB PER TUBE SCH (11:34)
[2022-06-16] MEDS: Ferrous Sulfate 325 MG TAB PO SCH (11:34)
[2022-06-16] MEDS: FLUoxetine HCl 20 MG CAP PER TUBE SCH (11:56)
[2022-06-16] MEDS: Amiodarone 200 MG TAB PER TUBE SCH (11:56)
[2022-06-16] MEDS: Terazosin HCl 1 MG CAP PER TUBE SCH (11:56)
[2022-06-16] MEDS: Timolol 0.5% Ophth Soln 5 ml Bottle R EYE SCH ×2 (11:57→20:42)
[2022-06-16] MEDS: Carvedilol 6.25 MG TAB PER TUBE SCH ×2 (11:57→17:51)
[2022-06-16] MEDS: Brimonidine Tartrate 0.2% Ophth Soln 5 ml Bottle R EYE SCH ×3 (11:57→20:42)
[2022-06-16] MEDS: Polyethylene Glycol 3350 17 GM Packet PER TUBE SCH (11:57)
[2022-06-16] MEDS: Senokot 8.6 MG TAB PER TUBE SCH (20:40)
[2022-06-16] MEDS: Atorvastatin Calcium 20 MG TAB PER TUBE SCH (20:40)
[2022-06-16] MEDS: Latanoprost 0.005% Ophth Soln 2.5 ml Bottle EA EYE SCH (20:43)
[2022-06-17] MEDS: HumaLOG 300 UNITS/3 ML VIAL SC PRN (05:26)
[2022-06-17] MEDS ORDERED: Multivits W-Minerals Liquid 15 ML LIQ PER TUBE SCH (09:00)
[2022-06-17] MEDS: FLUoxetine HCl 20 MG CAP PER TUBE SCH (09:47)
[2022-06-17] MEDS: Carvedilol 6.25 MG TAB PER TUBE SCH ×2 (09:47→18:34)
[2022-06-17] MEDS: Amiodarone 200 MG TAB PER TUBE SCH (09:47)
[2022-06-17] MEDS: Terazosin HCl 1 MG CAP PER TUBE SCH (09:47)
[2022-06-17] MEDS: Timolol 0.5% Ophth Soln 5 ml Bottle R EYE SCH (09:48)
[2022-06-17] MEDS: Polyethylene Glycol 3350 17 GM Packet PER TUBE SCH (09:48)
[2022-06-17] MEDS: Brimonidine Tartrate 0.2% Ophth Soln 5 ml Bottle R EYE SCH ×2 (09:48→18:34)
[2022-06-17] MEDS: Insulin Glargine 30 UNITS/0.3 ML VIAL SC SCH (09:48)
[2022-06-17 15:18] VITALS: BP 142/63; TEMP 98.3
== END 2022-06-17 18:54 | DRG 393 ==
LOC: ERS 09:53 → ERHOLD 13:30 → 2NO 16:28 → OBSVTOIN 06-12 15:01
PROVIDERS: ADMIT Internal Medicine Nephrology; ATTEND Internal Medicine
DX: K94.22 Gastrostomy infection (principal); A41.52 Sepsis due to Pseudomonas; G93.41 Metabolic encephalopathy; E43 Unspecified severe protein-calorie malnutrition; T83.518A Infection and inflammatory reaction due to other urinary catheter, initial encounter; E87.0 Hyperosmolality and hypernatremia; N39.0 Urinary tract infection, site not specified; R18.8 Other ascites; E87.1 Hypo-osmolality and hyponatremia; K94.23 Gastrostomy malfunction; I48.91 Unspecified atrial fibrillation; F41.9 Anxiety disorder, unspecified; F32.A Depression, unspecified; R13.10 Dysphagia, unspecified; Y84.6 Urinary catheterization as the cause of abnormal reaction of the patient, or of later complication, without mention of misadventure at the time of the procedure; E11.69 Type 2 diabetes mellitus with other specified complication; Y83.8 Other surgical procedures as the cause of abnormal reaction of the patient, or of later complication, without mention of misadventure at the time of the procedure; I69.991 Dysphagia following unspecified cerebrovascular disease; Z79.4 Long term (current) use of insulin; Z79.899 Other long term (current) drug therapy; Z79.84 Long term (current) use of oral hypoglycemic drugs; Z90.49 Acquired absence of other specified parts of digestive tract; Z74.01 Bed confinement status; Z68.32 Body mass index [BMI] 32.0-32.9, adult
CPT/HCPCS: 36415; 36416; 71045; 74178; 76705; 80048; 80053; 81003; 81015; 83605; 83880; 84484; 85025; 85652; 86140; 87070; 87077; 87186; 87205; 93005; 93306; 96365; 96366; 96372; 96375; 96376; 97139; G0378; J0696; J1650; J1815; J1940; J2185; J3480; J3490; P9047; U0002